=== PATIENT | female | born 1985 | race Caucasian/White ===

== ENCOUNTER 2018-06-23 18:15 | Emergency (ER) | payer OTHER ==
[2018-06-23 18:28] VITALS: BP 116/77
--- NOTE | 2018-06-23 19:15 | XRAY Report ---
Reason: pain, swelling rt hand, footboard fell onto hand Procedure Date: 06/23/2018 Accession Number: [id number] / [id number] Procedure: XR - Hand 3 View RT CPT Code: FULL RESULT: EXAM: RIGHT HAND RADIOGRAPHY EXAM DATE: 06/23/2018 06:34 PM. CLINICAL HISTORY: Pain, swelling rt hand, footboard fell onto hand. COMPARISON: None. TECHNIQUE: 3 views. FINDINGS: Bones: Normal. No fractures or bone lesions. Joints: Normal. No subluxations. Soft Tissues: No focal soft tissue swelling. IMPRESSION: No acute osseus abnormality. RADIA
--- NOTE | 2018-06-23 19:36 | ED Physician Documentation ---
PD HPI UPPER EXT INJURY - Stated complaint Stated Complaint: R HAND INJ - Chief complaint Chief Complaint: Ext Problem - History obtained from History obtained from: Patient - History of Present Illness Location: Right, Hand Type of injury: Crush (footboard while moving a bed today) Where injury occurred: Home Timing - onset: Today Timing - duration: Hours (2) Timing - details: Abrupt onset Pain level max: 9 Pain level now: 9 Improved by: Rest, Ice, Immobilization Worsened by: Moving, Palpating Associated symptoms: No: Weakness, Numbness, Tingling - Additonal information Additional information: pt is right handed Review of Systems Neurologic: denies: Focal weakness, Numbness PD PAST MEDICAL HISTORY - Past Medical History Past Medical History: No Cardiovascular: None Respiratory: None Neuro: None Endocrine/Autoimmune: None GI: None 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 mild swelling. NVI.) - Neuro Neuro: Alert and oriented X 3 - Psych Psych: Normal mood, Normal affect Results - Vitals Vitals: Vital Signs - 24 hr 06/23/18 06/23/18 18:22 19:48 Temperature 36.1 C L Heart Rate 85 Respiratory 16 17 Rate Blood Pressure 116/77 O2 Saturation 100 Oxygen O2 Source Room air - Rads (name of study) R hand xray Radiology: Prelim report reviewed, EMP read contemporaneously, See rad report (no acute bony abnormality.) PD MEDICAL DECISION MAKING - ED course Complexity details: reviewed results, re-evaluated patient, considered differential, d/w patient ED course: Patient is a 33-year-old female Who presents after crush injury to the right hand. No acute findings on x-ray. Placed in a volar splint for comfort. Neurovascularly intact. Patient counseled regarding signs and symptoms for which I believe and urgent re-evaluation would be necessary. Patient with good understanding of and agreement to plan and is comfortable going home at this time This document was made in part using voice recognition software. While efforts are made to proofread this document, sound alike and grammatical errors may occur. Departure - Departure Disposition: 01 Home, Self Care Clinical Impression: Contusion, hand Qualifiers: Encounter type: initial encounter Laterality: right Qualified Code(s): S60.221A - Contusion of right hand, initial encounter Condition: Good Instructions: ED Contusion Hand Follow-Up: BLU ANTONIO MD [Primary Care Provider] - Within 1 week Comments: Your x-rays are normal today. Return if you worsen. Wear the splint as needed for comfort. If you are still having pain in 1 week, you should have your hand re-evaluated by your doctor Discharge Date/Time: 06/23/18 19:59
== END 2018-06-23 19:59 | disposition home or self-care (01) ==
LOC: ED 18:15
DX: S60.221A Contusion of right hand, initial encounter (principal); X58.XXXA Exposure to other specified factors, initial encounter; Y93.89 Activity, other specified; Y92.009 Unspecified place in unspecified non-institutional (private) residence as the place of occurrence of the external cause
CPT/HCPCS: 99283

== ENCOUNTER 2018-08-15 15:37 | Emergency (ER) | payer OTHER ==
--- NOTE | 2018-08-15 17:04 | ED Physician Documentation ---
PD HPI URI - Stated complaint Stated Complaint: VOMITING/FEVER - Chief complaint Chief Complaint: Resp - History obtained from History obtained from: Patient - History of Present Illness Timing - onset: Yesterday Timing duration: Days (2) Timing details: Abrupt onset, Still present Associated symptoms: Fever, Chills, Sore throat, Swollen nodes, Dry cough, NVD. No: Dyspnea, Bilateral edema Contributing factors: Sick contact (coworkers with flu-like symptoms). No: Travel, Immunocompromised Similar symptoms before: Has not had sx before Recently seen: Not recently seen Review of Systems Constitutional: reports: Fever, Chills, Myalgias, Fatigue Nose: reports: Rhinorrhea / runny nose, Congestion Throat: reports: Sore throat Respiratory: reports: Cough GI: reports: Nausea, Vomiting, Diarrhea. denies: Abdominal Pain : denies: Dysuria, Frequency Skin: denies: Rash, Lesions Musculoskeletal: denies: Neck pain, Back pain Neurologic: reports: Generalized weakness, Headache. 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 : None HEENT: None Psych: None Musculoskeletal: None Derm: None - Past Surgical History Past Surgical History: No - Present Medications Home Medications: Ambulatory Orders Medication Instructions Recorded Confirmed Benzonatate [Tessalon Perle] 100 - 200 mg PO TID PRN #30 capsule 08/15/18 Dexamethasone [Decadron] 4 mg PO DAILY #5 tablet 08/15/18 Diphenoxylate/Atropine [Lomotil] 1 each PO QID PRN #12 tablet 08/15/18 Ondansetron Odt [Zofran] 4 mg TL Q6H PRN #10 tablet 08/15/18 - Allergies Allergies/Adverse Reactions: Allergies Allergy/AdvReac Type Severity Reaction Status Date / Time No Known Drug Allergies Allergy Verified 08/15/18 17:48 - Social History Does the pt smoke?: No Smoking Status: Never smoker Does the pt drink ETOH?: Yes Does the pt have substance abuse?: No - Immunizations Immunizations are current?: Yes - POLST Patient has POLST: No PD ED PE NORMAL - Vitals Vital signs reviewed: Yes - General General: Alert and oriented X 3, No acute distress, Well developed/nourished - HEENT HEENT: Ears normal, Moist mucous membranes, Pharynx benign - Neck Neck: Supple, no meningeal sign, Other (mild anterior adenopathy without notable tenderness. ) - Cardiac Cardiac: RRR (mild tachycardia), No murmur - Respiratory Respiratory: Clear bilaterally - Abdomen Abdomen: Soft, Non tender - Back Back: No CVA TTP - Derm Derm: Normal color, Warm and dry - Neuro Neuro: Alert and oriented X 3, No motor deficit, Normal speech Results - Vitals Vitals: Vital Signs - 24 hr 08/15/18 08/15/18 15:41 19:55 Temperature 36.8 C Heart Rate 108 H 105 H Respiratory 18 18 Rate Blood Pressure 123/83 H 133/97 H O2 Saturation 98 98 Oxygen O2 Source Room air - Labs Labs: Laboratory Tests 08/15/18 15:45 Influenza A (Rapid) Negative Influenza B (Rapid) Negative PD MEDICAL DECISION MAKING - ED course Complexity details: considered differential (This sounds flulike with some cough sore throat nausea vomiting some diarrhea and general malaise. Her flu test is negative but is certainly not completely accurate. However it does sound viral and so we will treat symptoms and have her improved and then continue symptom medications over the next 2-3 days.), d/w patient Departure - Departure Disposition: 01 Home, Self Care Clinical Impression: Viral syndrome Condition: Stable Record reviewed to determine appropriate education?: Yes Instructions: ED Viral Syndrome Follow-Up: BLU ANTONIO MD [Primary Care Provider] - Prescriptions: Benzonatate [Tessalon Perle] 100 - 200 mg PO TID PRN #30 capsule PRN Reason: Cough Dexamethasone [Decadron] 4 mg PO DAILY #5 tablet Diphenoxylate/Atropine [Lomotil] 1 each PO QID PRN #12 tablet PRN Reason: Diarrhea Ondansetron Odt [Zofran] 4 mg TL Q6H PRN #10 tablet PRN Reason: Nausea / Vomiting Comments: Drink lots of fluids. Tylenol or ibuprofen if needed for pains and fevers. Ondansetron for nausea. Tessalon if needed for cough. Use antidiarrheal medicine if needed. Decadron steroid for inflammation will help with the cough and a lot of the body aches and those type symptoms. Recheck if not improving over the next 3-5 days. Forms: Activity restrictions Discharge Date/Time: 08/15/18 20:01
[2018-08-15] MEDS ORDERED: ONDANSETRON ODT 4 MG TABLET TL STA (17:26)
[2018-08-15] MEDS ORDERED: BENZONATATE 100 MG CAPSULE PO STA (17:26)
[2018-08-15] MEDS ORDERED: DIPHENOX/ATROPINE 2.5/0.025 MG TABLET PO STA (17:26)
[2018-08-15] MEDS ORDERED: DEXAMETHASONE 10 MG/ML VIAL PO STA (17:26)
[2018-08-15 19:55] VITALS: BP 133/97
== END 2018-08-15 20:01 | disposition home or self-care (01) ==
LOC: ED 15:37
DX: B34.9 Viral infection, unspecified (principal)
CPT/HCPCS: 87275; 87276; 99283; A9270; Q0162

== ENCOUNTER 2019-01-24 19:46 | Emergency (ER) | payer OTHER ==
[2019-01-24 19:50] VITALS: BP 137/80
--- NOTE | 2019-01-24 20:15 | ED Physician Documentation ---
PD HPI FOCAL NEURO - Stated complaint Stated Complaint: L ARM NUMBNESS/ABNORMAL BREATH - Chief complaint Chief Complaint: Neuro - History obtained from History obtained from: Patient - History of Present Illness Timing - onset: Today (She is had odd episodes of shortness of breath followed by cough today, after 1 of these episodes she developed some mild left-sided neck pain and left arm numbness not associated with left facial lower left leg numbness. She is not short of breath except for during these episodes. She denies pedal edema or calf pain. 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 : None HEENT: None Psych: None Musculoskeletal: None Derm: None - Past Surgical History Past Surgical History: No - Present Medications Home Medications: Ambulatory Orders Medication Instructions Recorded Confirmed predniSONE [Deltasone] 20 mg PO [id number] #21 tab 01/24/19 - Allergies Allergies/Adverse Reactions: Allergies Allergy/AdvReac Type Severity Reaction Status Date / Time No Known Drug Allergies Allergy Verified 01/24/19 19:50 - Social History Does the pt smoke?: No Smoking Status: Never smoker Does the pt drink ETOH?: Yes Does the pt have substance abuse?: No - Immunizations Immunizations are current?: Yes - POLST Patient has POLST: No PD ED PE NORMAL - Vitals Vital signs reviewed: Yes - General General: Alert and oriented X 3, No acute distress - HEENT HEENT: PERRL, EOMI - Neck Neck: Supple, no meningeal sign, No bony TTP - Cardiac Cardiac: RRR, No murmur - Respiratory Respiratory: No respiratory distress, Clear bilaterally - Abdomen Abdomen: Normal bowel sounds, Soft, Non tender - Back Back: No CVA TTP, No spinal TTP - Extremities Extremities: No edema, No calf tenderness / cord - Neuro Neuro: Alert and oriented X 3, No motor deficit, Normal speech, Other (Symmetric tongue and groove machine feeder strength, thumb extension, interosseous strength in the upper extremities. Very mildly diminished sensation over the deltoid and forearm that spares the hand on the left. There is no asymmetric sensation in the face or legs.) Eye Opening: Spontaneous Motor: Obeys Commands Verbal: Oriented GCS Score: 15 NIHSS - Time Time: 20:10 - Level of Consciousness Level of consciousness: (0) Alert, Keenly responsive LOC Questions: (0) Answers both Q's correct LOC Commands: (0) Performs both correctly - Gaze Best Gaze: (0) Normal - Visual Visual: (0) No loss - Facial Palsy Facial Palsy: (0) Normal, symmetrical movement - Motor Arms (both separate) Motor Arm (right): (0) No drift Motor Arm (left): (0) No drift - Motor Legs (both separate) Motor Leg (right): (0) No drift Motor Leg (left): (0) No drift - Limb Ataxia Limb Ataxia: (0) Absent - Sensory Sensory: (1) Hbdt-hq-mlffxkwb loss - Best Language Best Language: (0) No aphasia - Dysarthria Dysarthria: (0) Normal - Extinction and Inattention (formally neg Extinction and inattention: (0) No abnormality - Total Score/Results Total Score/Result: 1 Results - Vitals Vitals: Vital Signs - 24 hr 01/24/19 19:48 Temperature 36.7 C Heart Rate 111 H Respiratory 18 Rate Blood Pressure 137/80 H O2 Saturation 99 Oxygen O2 Source Room air - Labs Labs: Laboratory Tests 01/24/19 01/24/19 01/24/19 20:23 20:23 20:23 WBC 10.2 RBC 5.11 Hgb 13.9 Hct 42.4 MCV 82.9 MCH 27.3 MCHC 32.9 RDW 13.4 Plt Count 379 MPV 7.3 L Neut # (Auto) 5.8 Lymph # (Auto) 3.3 [place] # (Auto) 0.8 Eos # (Auto) 0.2 Baso # (Auto) 0.2 H Absolute Nucleated RBC 0.01 Nucleated RBC % 0.1 D-Dimer 231.4 Sodium 137 Potassium 3.6 Chloride 103 Carbon Dioxide 23 Anion Gap 11.0 BUN 17 Creatinine 0.8 Estimated GFR (MDRD) 88 L Glucose 136 H Calcium 9.4 Total Bilirubin 0.7 AST 24 ALT 28 Alkaline Phosphatase 79 Total Protein 8.0 Albumin 4.3 Globulin 3.7 Albumin/Globulin Ratio 1.2 Lipase 25 PD MEDICAL DECISION MAKING - ED course ED course: 23-year-old woman with left arm numbness that started after coughing. There is no weakness or involvement of the face or leg. This is most likely consistent with a cervical radiculopathy. She was short of breath with it. The remainder of her diagnostic testing was negative. Departure - Departure Disposition: Home, Self Care Clinical Impression: Left upper extremity numbness, Cervical radiculopathy Condition: Good Record reviewed to determine appropriate education?: Yes Instructions: ED Cervical Radiculopathy Prescriptions: predniSONE [Deltasone] 20 mg PO [id number] #21 tab Comments: Call your doctor to arrange a follow-up appointment, make the next available appointment. In the interim, return anytime if worse or if new symptoms develop.
[2019-01-24 20:31] LABS: BASOPHILS # (AUTO) 0.2 10^3/uL (0.0-0.1); BASOPHILS % (AUTO) 1.8 %; EOSINOPHILS # (AUTO) 0.2 10^3/uL (0.0-0.7); EOSINOPHILS % (AUTO) 1.8 %; HGB - HEMOGLOBIN 13.9 g/dL (12.0-16.0); LYMPHOCYTES # (AUTO) 3.3 10^3/uL (1.5-3.5); LYMPHOCYTES % (AUTO) 31.8 %; MEAN CORPUSCULAR HEMOGLOBIN 27.3 pg (27.0-31.0); MEAN CORPUSCULAR HGB CONC 32.9 g/dL (32.0-36.0); MEAN CORPUSCULAR VOLUME 82.9 fL (81.0-99.0); MEAN PLATELET VOLUME 7.3 fL (7.9-10.8); MONOCYTES # (AUTO) 0.8 10^3/uL (0.0-1.0); MONOCYTES % (AUTO) 7.9 %; NEUTROPHILS # (AUTO) 5.8 10^3/uL (1.5-6.6); NEUTROPHILS % (AUTO) 56.7 %; PLT - PLATELET COUNT 379 10^3/uL (130-450); RED BLOOD COUNT 5.11 10^6/uL (4.20-5.40); RED CELL DISTRIBUTION WIDTH 13.4 % (12.0-15.0); WHITE BLOOD COUNT 10.2 x10^3/uL (4.8-10.8)
[2019-01-24 20:44] LABS: ALBUMIN 4.3 g/dL (3.2-5.5); ALBUMIN/GLOBULIN RATIO 1.2 (1.0-2.2); BILIRUBIN,TOTAL 0.7 mg/dL (0.2-1.0); CALCIUM 9.4 mg/dL (8.5-10.3); CREATININE 0.8 mg/dL (0.4-1.0)
--- NOTE | 2019-01-24 21:04 | CT Report ---
Reason: L arm numb, neck pain Procedure Date: 01/24/2019 Accession Number: [id number] / [id number] Procedure: CT - HEAD WO CPT Code: FULL RESULT: EXAM: CT HEAD EXAM DATE: 01/24/2019 08:39 PM. CLINICAL HISTORY: L arm numb, neck pain. COMPARISON: None. TECHNIQUE: Multiaxial CT images were obtained from the foramen magnum to the vertex. Reformats: Sagittal and coronal. IV contrast: None. In accordance with CT protocol optimization, one or more of the following dose reduction techniques were utilized for this exam: automated exposure control, adjustment of mA and/or KV based on patient size, or use of iterative reconstructive technique. FINDINGS: Parenchyma: No intraparenchymal hemorrhage. No evidence of mass, midline shift, or CT findings of infarction. Ott-white differentiation is distinct. Extraaxial Spaces: Normal for age. No subdural or epidural collections. Ventricles: Normal in size and position. Sinuses and Orbits: Marked mucosal thickening in maxillary sinuses with small air-fluid levels in maxillary and sphenoid sinuses. Otherwise unremarkable. Bones: Unremarkable. Other: None. IMPRESSION: 1. Prominent maxillary and sphenoid sinusitis with air-fluid levels. 2. Otherwise negative head CT. RADIA
--- NOTE | 2019-01-24 21:08 | CT Report ---
Reason: L arm numb, neck pain Procedure Date: 01/24/2019 Accession Number: [id number] / [id number] Procedure: CT - CERVICAL SPINE WO CPT Code: FULL RESULT: EXAM: CT CERVICAL SPINE WITHOUT CONTRAST DATE: 01/24/2019 08:39 PM. HISTORY: L arm numb, neck pain. COMPARISONS: None. TECHNIQUE: Thin-section axial images were acquired of the cervical spine without contrast. Post-processing: Coronal and sagittal reformats. Other: None. In accordance with CT protocol optimization, one or more of the following dose reduction techniques were utilized for this exam: automated exposure control, adjustment of mA and/or KV based on patient size, or use of iterative reconstructive technique. FINDINGS: Alignment: Slight reversal of lordotic curve at C3-C4. No listhesis. No scoliosis. Bones: No fracture or bone lesion. Interspace Levels/Facets: Disk spaces appear well preserved. No degenerative changes. Musculature: Unremarkable. Other: The paravertebral and prevertebral soft tissues are unremarkable. The lung apices are clear. IMPRESSION: Essentially negative study. RADIA
[2019-01-24] MEDS ORDERED: predniSONE 20 MG TABLET PO STA (21:14)
== END 2019-01-24 21:27 | disposition home or self-care (01) ==
LOC: ED 19:46
DX: M54.12 Radiculopathy, cervical region (principal); R20.0 Anesthesia of skin; R06.02 Shortness of breath
CPT/HCPCS: 36415; 70450; 72125; 80053; 83690; 85025; 85379; 99283; J7512

== ENCOUNTER 2019-02-10 06:30 | Emergency (ER) | payer OTHER ==
[2019-02-10 06:52] LABS: BASOPHILS # (AUTO) 0.1 10^3/uL (0.0-0.1); BASOPHILS % (AUTO) 0.9 %; EOSINOPHILS # (AUTO) 0.2 10^3/uL (0.0-0.7); EOSINOPHILS % (AUTO) 2.5 %; HGB - HEMOGLOBIN 14.5 g/dL (12.0-16.0); LYMPHOCYTES # (AUTO) 3.3 10^3/uL (1.5-3.5); LYMPHOCYTES % (AUTO) 43.9 %; MEAN PLATELET VOLUME 7.2 fL (7.9-10.8); MONOCYTES # (AUTO) 0.6 10^3/uL (0.0-1.0); MONOCYTES % (AUTO) 8.1 %; NEUTROPHILS # (AUTO) 3.4 10^3/uL (1.5-6.6); NEUTROPHILS % (AUTO) 44.6 %; PLT - PLATELET COUNT 343 10^3/uL (130-450); RED BLOOD COUNT 4.99 10^6/uL (4.20-5.40); RED CELL DISTRIBUTION WIDTH 13.7 % (12.0-15.0); WHITE BLOOD COUNT 7.5 x10^3/uL (4.8-10.8)
[2019-02-10 07:09] LABS: ALBUMIN 4.4 g/dL (3.2-5.5); ALBUMIN/GLOBULIN RATIO 1.2 (1.0-2.2); BILIRUBIN,TOTAL 0.7 mg/dL (0.2-1.0); CREATININE 0.7 mg/dL (0.4-1.0); TOTAL PROTEIN 8.2 g/dL (6.7-8.2)
[2019-02-10 07:11] LABS: BILIRUBIN,URINE NEGATIVE (NEGATIVE); GLUCOSE, URINE (UA) NEGATIVE (NEGATIVE); KETONES,URINE (UA) NEGATIVE (NEGATIVE); LEUKOCYTE ESTERASE, URINE NEGATIVE (NEGATIVE); NITRITE,URINE NEGATIVE (NEGATIVE); OCCULT BLOOD,URINE NEGATIVE (NEGATIVE); PROTEIN,URINE NEGATIVE (NEGATIVE); UROBILINOGEN,URINE 0.2 (NORMAL) E.U./dL (NORMAL)
[2019-02-10 07:14] LABS: CLARITY,URINE HAZY (CLEAR); HCG UR QUAL NEGATIVE
[2019-02-10 07:21] LABS: BACTERIA,URINE Few /HPF (None Seen); CRYSTALS,URINE 26-50 Ca Oxalate /LPF; RBC,URINE 0-5 /HPF (0-5); SQUAMOUS EPITHELIAL CELL,UR MANY Squamous (<= Few)
--- NOTE | 2019-02-10 07:44 | ED Physician Documentation ---
PD HPI ABD PAIN - Stated complaint Stated Complaint: ABD PAIN - Chief complaint Chief Complaint: Abd Pain - History obtained from History obtained from: Patient, Family - History of Present Illness Timing - onset: Enter time (529), Today Timing - duration: Hours Timing - details: Abrupt onset, Still present Pain level max: 9 Pain level now: 9 Quality: Cramping, Sharp, Pain Location: Periumbilical Radiation: Left flank, Right flank Improved by: Laying still Worsened by: Moving, Position, Palpation Associated symptoms: Nausea, Vomiting Similar symptoms before: Has not had sx before Recently seen: Emergency Dept - Additional information Additional information: Previously well 23-year-old female was awakened at 530 this morning with abdominal pain in the suprapubic and periumbilical area that radiated to both flanks. She has had severe pain and has had one episode of vomiting. She has not had this pain previously and she has noted that when she is up moving around the pain is worse. She was not able to localize to one side or the other. Review of Systems Constitutional: denies: Fever Eyes: denies: Decreased vision Ears: denies: Ear pain Nose: denies: Rhinorrhea / runny nose, Congestion Throat: denies: Sore throat Cardiac: denies: Chest pain / pressure, Palpitations Respiratory: reports: Cough. denies: Dyspnea GI: reports: Abdominal Pain, Nausea, Vomiting : denies: Dysuria, Frequency Skin: denies: Rash Musculoskeletal: reports: Back pain. 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 : None HEENT: None Psych: None Musculoskeletal: None Derm: None - Past Surgical History Past Surgical History: No - Present Medications Home Medications: Ambulatory Orders Medication Instructions Recorded Confirmed No Known Home Medications 02/10/19 02/10/19 - Allergies Allergies/Adverse Reactions: Allergies Allergy/AdvReac Type Severity Reaction Status Date / Time No Known Drug Allergies Allergy Verified 02/10/19 06:37 - Social History Does the pt smoke?: No Smoking Status: Never smoker Does the pt drink ETOH?: Yes Does the pt have substance abuse?: No - Immunizations Immunizations are current?: Yes - POLST Patient has POLST: No PD ED PE NORMAL - Vitals Vital signs reviewed: Yes (hypertensive mild ) - General General: Alert and oriented X 3, No acute distress, Well developed/nourished - HEENT HEENT: Atraumatic, PERRL, EOMI - Neck Neck: Supple, no meningeal sign, No bony TTP - Cardiac Cardiac: RRR, No murmur - Respiratory Respiratory: No respiratory distress, Clear bilaterally - Abdomen Abdomen: Soft, Non distended, No organomegaly, Other (There is specific right lower quadrant tenderness that is reproducible and there is referred pain to the RLQ There is no RUQ tenderness and there is mild bilateral flank tenderness. ) - Back Back: No spinal TTP, Other (mild bilateral flank tenderness not reproducible ) - Derm Derm: Normal color, Warm and dry, No rash - Extremities Extremities: No deformity, Normal ROM s pain, No edema, No calf tenderness / cord - Neuro Neuro: Alert and oriented X 3, risk prevention engineer 2-12 intact, No motor deficit, No sensory deficit, Normal speech Eye Opening: Spontaneous Motor: Obeys Commands Verbal: Oriented GCS Score: 15 - Psych Psych: Normal mood, Normal affect Results - Vitals Vitals: Vital Signs - 24 hr 02/10/19 02/10/19 06:34 11:12 Temperature 37 C 36.8 C Heart Rate 100 66 Respiratory 16 20 Rate Blood Pressure 124/83 H 106/75 O2 Saturation 99 100 Oxygen O2 Source Room air - Labs Labs: Laboratory Tests 02/10/19 02/10/19 02/10/19 06:46 06:46 07:00 WBC 7.5 RBC 4.99 Hgb 14.5 Hct 41.4 MCV 83.0 MCH 29.0 MCHC 35.0 RDW 13.7 Plt Count 343 MPV 7.2 L Neut # (Auto) 3.4 Lymph # (Auto) 3.3 [place] # (Auto) 0.6 Eos # (Auto) 0.2 Baso # (Auto) 0.1 Absolute Nucleated RBC 0.01 Nucleated RBC % 0.1 Sodium 138 Potassium 3.8 Chloride 106 Carbon Dioxide 20 L Anion Gap 12.0 BUN 15 Creatinine 0.7 Estimated GFR (MDRD) 103 Glucose 127 H Calcium 9.0 Total Bilirubin 0.7 AST 22 ALT 25 Alkaline Phosphatase 79 Total Protein 8.2 Albumin 4.4 Globulin 3.7 Albumin/Globulin Ratio 1.2 Lipase 28 Urine Color YELLOW Urine Clarity HAZY Urine pH 5.0 Ur Specific [place] >=1.030 H Urine Protein NEGATIVE Urine Glucose (UA) NEGATIVE Urine Ketones NEGATIVE Urine Occult Blood NEGATIVE Urine Nitrite NEGATIVE Urine Bilirubin NEGATIVE Urine Urobilinogen 0.2 (NORMAL) Ur Leukocyte Esterase NEGATIVE Urine RBC 0-5 Urine WBC 0-3 Ur Squamous Epith Cells MANY Squamous H Urine Crystals 26-50 Ca Oxalate Urine Bacteria Few Ur Microscopic Review INDICATED Urine Culture Comments NOT INDICATED Urine HCG, Qual NEGATIVE - Rads (name of study) CT abd/pel without Radiology: Prelim report reviewed (Impression: 1. The appendix images normally. 2 No bowel obstruction or inflammatory process associated with the bowel. 3 There is a paucity of bowel gas in the small bowel), EMP read indepedently, See rad report pelvic ultrasound Radiology: Prelim report reviewed (Impression: Normal pelvic ultrasound.), EMP read indepedently, See rad report Procedures - Bedside sono Bedside sono by EMP: With use of bedside ultrasound both kidneys are imaged and there is not evidence of hydronephrosis and the kidneys are sonographically nontender. PD MEDICAL DECISION MAKING - ED course Complexity details: reviewed old records, reviewed results, re-evaluated patient, considered differential, d/w patient, d/w family ED course: 23-year-old female with right lower quadrant abdominal pain on examination has improvement from a 9 to a 6 on her pain scale with use of intravenous Toradol. Her CT scan is negative for evidence of appendicitis or inflammation. She has had prior issues with ovarian cyst and an ultrasound is ordered. This test is unremarkable as well. The patient has had further improvement in her pain. We did not find evidence of an acute disease process on evaluation today. Departure - Departure Disposition: 01 Home, Self Care Clinical Impression: Abdominal pain of unknown etiology Condition: Stable Instructions: ED Abdominal Pain Unkn Cause Follow-Up: BLU ANTONIO MD [Primary Care Provider] - Forms: Activity restrictions
[2019-02-10] MEDS ORDERED: SODIUM CHLORIDE 0.9% 1,000 ML IV ONE (07:47)
[2019-02-10] MEDS ORDERED: KETOROLAC 30 MG/ML VIAL IVP STA (07:47)
[2019-02-10] MEDS ORDERED: ONDANSETRON 4 MG/2 ML VIAL IVP STA (07:47)
--- NOTE | 2019-02-10 08:33 | CT Report ---
Reason: RLQ tenderness Procedure Date: 02/10/2019 Accession Number: [id number] / [id number] Procedure: CT - Abdomen/Pelvis WO CPT Code: FULL RESULT: EXAM: CT ABDOMEN AND PELVIS EXAM DATE: 02/10/2019 08:21 AM. CLINICAL HISTORY: RLQ tenderness. COMPARISONS: None. TECHNIQUE: Routine helical CT imaging was performed through the abdomen and pelvis. IV contrast: None. Enteric contrast: No. Reconstructions: Coronal and sagittal. In accordance with CT protocol optimization, one or more of the following dose reduction techniques were utilized for this exam: automated exposure control, adjustment of mA and/or KV based on patient size, or use of iterative reconstructive technique. FINDINGS: Lung Bases: Unremarkable. Liver: Normal. No masses. Gallbladder/Bile Ducts: Unremarkable. Spleen: Normal. Pancreas: Normal. Adrenal Glands: Normal. Kidneys: Normal. No masses or hydronephrosis. Peritoneal Cavity/Bowel: The cecum and appendix are located in the right upper quadrant. No bowel obstruction or inflammatory process associated with the bowel. No free air or fluid in the abdomen or pelvis. There is a paucity of bowel gas in small bowel. The appendix is well visualized and normal. Pelvic Organs: Normal. The bladder and visualized pelvic organs are within normal limits. Vasculature: No aneurysms or other significant abnormality. Bones: No significant abnormality. Other: None. IMPRESSION: 1. The appendix images normally. 2. No bowel obstruction or inflammatory process associated with the bowel. 3. There is a paucity of bowel gas in the small bowel. RADIA
--- NOTE | 2019-02-10 11:01 | Ultrasound Report ---
Reason: RLQ pain Procedure Date: 02/10/2019 Accession Number: [id number] / [id number] Procedure: US - Pelvic w/Doppler Limited CPT Code: FULL RESULT: EXAM: PELVIC ULTRASOUND EXAM DATE: 02/10/2019 09:21 AM. CLINICAL HISTORY: RLQ pain. COMPARISON: CT ABDOMEN/PELVIS W/O 02/10/2019 8:11 AM. TECHNIQUE: Realtime transabdominal pelvic scan performed with static image documentation. FINDINGS: Uterus: 6.9 x 2.7 x 3.8 cm, volume 37 cc. Anteverted position. Normal overall size and echotexture. Masses: None. Endometrium: 2.4 mm. Normal. Cervix: Unremarkable. Right Ovary: 3.6 x 2.3 x 3.2 cm, volume 13.8 cc. Normal echotexture and blood flow. Left Ovary: 3.6 x 1.9 x 3.3 cm, volume 11.8 cc. Normal echotexture and blood flow. Free Fluid: None. Other: None. IMPRESSION: Normal pelvic ultrasound. [facility]
[2019-02-10 11:13] VITALS: BP 106/75
== END 2019-02-10 12:02 | disposition home or self-care (01) ==
LOC: ED 06:30
DX: R10.31 Right lower quadrant pain (principal); R11.2 Nausea with vomiting, unspecified
CPT/HCPCS: 36415; 74176; 76856; 80053; 81001; 81003; 81025; 83690; 85025; 87086; 93976; 96361; 96374; 99283

== ENCOUNTER 2019-09-27 19:47 | Emergency (ER) | payer OTHER ==
[2019-09-27 20:37] LABS: BASOPHILS # (AUTO) 0.1 10^3/uL (0.0-0.1); BASOPHILS % (AUTO) 0.7 %; EOSINOPHILS # (AUTO) 0.2 10^3/uL (0.0-0.7); EOSINOPHILS % (AUTO) 1.5 %; HGB - HEMOGLOBIN 13.6 g/dL (12.0-16.0); LYMPHOCYTES % (AUTO) 28.9 %; MEAN CORPUSCULAR HEMOGLOBIN 27.9 pg (27.0-31.0); MEAN CORPUSCULAR HGB CONC 33.1 g/dL (32.0-36.0); MEAN CORPUSCULAR VOLUME 84.4 fL (81.0-99.0); MEAN PLATELET VOLUME 8.8 fL (7.9-10.8); MONOCYTES # (AUTO) 0.5 10^3/uL (0.0-1.0); MONOCYTES % (AUTO) 5.1 %; NEUTROPHILS # (AUTO) 6.6 10^3/uL (1.5-6.6); NEUTROPHILS % (AUTO) 63.5 %; PLT - PLATELET COUNT 358 10^3/uL (130-450); RED BLOOD COUNT 4.87 10^6/uL (4.20-5.40); RED CELL DISTRIBUTION WIDTH 13.2 % (12.0-15.0); WHITE BLOOD COUNT 10.3 x10^3/uL (4.8-10.8)
[2019-09-27 20:51] LABS: ALBUMIN 4.2 g/dL (3.2-5.5); ALBUMIN/GLOBULIN RATIO 1.2 (1.0-2.2); BILIRUBIN,TOTAL 0.4 mg/dL (0.2-1.0); CALCIUM 8.8 mg/dL (8.5-10.3); CREATININE 0.7 mg/dL (0.4-1.0); TOTAL PROTEIN 7.6 g/dL (6.7-8.2)
--- NOTE | 2019-09-27 20:59 | ED Physician Documentation ---
History of Present Illness - Stated complaint Stated Complaint: CRAMPING,VAGINAL BLEEDING - Chief complaint Chief Complaint: Abd Pain - History obtained from History obtained from: Patient (The patient is a very pleasant 24-year-old female who is a G1, P0 at 9 weeks by LMP presents with vaginal spotting and cramping today. She denies any other complaints she denies dysuria hematuria fevers or abdominal pain.) Review of Systems Constitutional: reports: Reviewed and negative Eyes: reports: Reviewed and negative Ears: reports: Reviewed and negative Nose: reports: Reviewed and negative Throat: reports: Reviewed and negative Cardiac: reports: Reviewed and negative Respiratory: reports: Reviewed and negative GI: reports: Reviewed and negative : reports: Vaginal bleeding Skin: reports: Reviewed and negative Musculoskeletal: reports: Reviewed and negative Neurologic: reports: Reviewed and negative Psychiatric: reports: Reviewed and negative Endocrine: reports: Reviewed and negative Immunocompromised: reports: Reviewed and negative PD PAST MEDICAL HISTORY - Past Medical History Cardiovascular: None Respiratory: None Neuro: None Endocrine/Autoimmune: None GI: None MOVEMAN: None : None HEENT: None Psych: None Musculoskeletal: None Derm: None - Past Surgical History Past Surgical History: No - Present Medications Home Medications: Ambulatory Orders Medication Instructions Recorded Confirmed No Known Home Medications 02/10/19 02/10/19 - Allergies Allergies/Adverse Reactions: Allergies Allergy/AdvReac Type Severity Reaction Status Date / Time No Known Drug Allergies Allergy Verified 02/10/19 06:37 - Social History Does the pt smoke?: No Smoking Status: Never smoker Does the pt drink ETOH?: Yes Does the pt have substance abuse?: No - Immunizations Immunizations are current?: Yes - POLST Patient has POLST: No PD ED PE NORMAL - Vitals Vital signs reviewed: Yes - General General: Alert and oriented X 3, No acute distress - HEENT HEENT: PERRL - Neck Neck: Supple, no meningeal sign - Cardiac Cardiac: RRR, No murmur - Respiratory Respiratory: Clear bilaterally - Abdomen Abdomen: Normal bowel sounds, Soft, Non tender, Non distended - Female Female : Deferred - Derm Derm: Warm and dry - Extremities Extremities: No deformity - Neuro Neuro: Alert and oriented X 3 - Psych Psych: Normal mood, Normal affect Results - Vitals Vitals: Vital Signs - 24 hr 09/27/19 09/27/19 19:50 21:21 Temperature 37 C 37.1 C Heart Rate 88 86 Respiratory 16 20 Rate Blood Pressure 146/94 H 120/73 O2 Saturation 100 100 Oxygen O2 Source Room air - Labs Labs: Laboratory Tests 09/27/19 09/27/19 09/27/19 20:35 20:35 20:35 WBC 10.3 RBC 4.87 Hgb 13.6 Hct 41.1 MCV 84.4 MCH 27.9 MCHC 33.1 RDW 13.2 Plt Count 358 MPV 8.8 Neut # (Auto) 6.6 Lymph # (Auto) 3.0 [place] # (Auto) 0.5 Eos # (Auto) 0.2 Baso # (Auto) 0.1 Absolute Nucleated RBC 0.00 Nucleated RBC % 0.0 Sodium 135 Potassium 3.2 L Chloride 101 Carbon Dioxide 22 Anion Gap 12.0 BUN 9 Creatinine 0.7 Estimated GFR (MDRD) 102 Glucose 131 H Calcium 8.8 Total Bilirubin 0.4 AST 20 ALT 24 Alkaline Phosphatase 60 Total Protein 7.6 Albumin 4.2 Globulin 3.4 Albumin/Globulin Ratio 1.2 Lipase 25 HCG, Quant 140771.00 Blood Type 09/27/19 20:35 WBC RBC Hgb Hct MCV MCH MCHC RDW Plt Count MPV Neut # (Auto) Lymph # (Auto) [place] # (Auto) Eos # (Auto) Baso # (Auto) Absolute Nucleated RBC Nucleated RBC % Sodium Potassium Chloride Carbon Dioxide Anion Gap BUN Creatinine Estimated GFR (MDRD) Glucose Calcium Total Bilirubin AST ALT Alkaline Phosphatase Total Protein Albumin Globulin Albumin/Globulin Ratio Lipase HCG, Quant Blood Type A POSITIVE PD MEDICAL DECISION MAKING - ED course Complexity details: other (Patient was updated on the results of the ultrasound I recommended that she allow us to draw blood as well as obtain urine however the patient reports that she like to be discharged home she has close follow-up today with her OB provider as well as her primary care provider today the patient does have medical decision-making capability and capacity accepts all and any possible adverse outcome such as demise.) Departure - Departure Disposition: Home, Self Care Clinical Impression: Qualifiers: Weeks of gestation: 8 weeks Qualified Code(s): Z3A.08 - 8 weeks gestation of Condition: Good Instructions: ED Care, ED Preg Established Normal Sxs Follow-Up: BLU ANTONIO MD [Primary Care Provider] - Discharge Date/Time: 09/27/19 23:59
[2019-09-27 21:22] VITALS: BP 120/73
--- NOTE | 2019-09-27 22:19 | Ultrasound Report ---
Reason: 9 week preg, vb Procedure Date: 09/27/2019 Accession Number: [id number] / [id number] Procedure: US - OB First Trimester CPT Code: Final Report FULL RESULT: EXAM: FIRST TRIMESTER OBSTETRIC ULTRASOUND (Less than 11 weeks) EXAM DATE: 09/27/2019 09:24 PM. CLINICAL HISTORY: 9 week . Vaginal bleeding. LMP: 07/19/2019. COMPARISONS: None. TECHNIQUE: Transabdominal and transvaginal ultrasound examination with static image documentation. CLINICAL DATES: EGA 10 weeks 0 days with ALEX 04/24/2020 based on LMP. ASSESSMENT: Gestational Sac: Single intrauterine. Mean gestational sac diameter: 28 mm = 7 weeks 6 days. Embryo: CRL (crown-rump length) 19 mm = 8 weeks 3 days. Cardiac activity: 174 beats per minute. Yolk sac: 5 mm. Amniotic fluid: Not accurately assessed at this gestational age. Early placenta: Not visible at this gestational age. Other: Small perigestational fluid collection demonstrated 1.7 x 0.8 cm. MATERNAL STRUCTURES: Uterus: Anteverted. Unremarkable. Cervix: Closed. Right Ovary/Adnexa: The ovary measures 2.9 x 1.9 x 4.2 cm, volume 12.3 cc. Unremarkable. Left Ovary/Adnexa: The ovary measures 2.4 x 2.7 x 4.0 cm, volume 13.7 cc. Unremarkable. Free Fluid: None. Other: None. IMPRESSION: 1. Single viable intrauterine at EGA 8 weeks 3 days with ALEX 05/05/2020 based on crown-rump length, which is discordant with clinical dates. 2. Assigned dating is ALEX 05/05/2020 based on crown-rump length. 3. Small perigestational hemorrhage noted 1.7 x 0.8 cm. RAD[facility]
== END 2019-09-27 23:59 | disposition home or self-care (01) ==
LOC: ED 19:47
DX: O20.9 Hemorrhage in early pregnancy, unspecified (principal); Z3A.08 8 weeks gestation of pregnancy
CPT/HCPCS: 36415; 76801; 76817; 80053; 83690; 84702; 85025; 86900; 86901; 99282; 99284

== ENCOUNTER 2019-11-09 13:29 | Emergency (ER) | payer OTHER ==
[2019-11-09 13:34] VITALS: BP 136/81
--- NOTE | 2019-11-09 14:01 | ED Physician Documentation ---
PD HPI LOWER EXT INJURY - Stated complaint Stated Complaint: HURT LEFT ANKLE - Chief complaint Chief Complaint: Ext Problem - History obtained from History obtained from: Patient (She is 14 weeks . She was getting in her car today and the door slammed on her left foot and she has moderate pain thereafter feeling a crack on the lateral side of the foot. No other injuries.) Review of Systems Constitutional: reports: Reviewed and negative Cardiac: reports: Reviewed and negative Respiratory: reports: Reviewed and negative PD PAST MEDICAL HISTORY - Past Medical History Cardiovascular: None Respiratory: None Neuro: None Endocrine/Autoimmune: None GI: None SPOOL SALVAGER: None : None HEENT: None Psych: None Musculoskeletal: None Derm: None - Past Surgical History Past Surgical History: No - Present Medications Home Medications: Ambulatory Orders Medication Instructions Recorded Confirmed No Known Home Medications 02/10/19 02/10/19 - Allergies Allergies/Adverse Reactions: Allergies Allergy/AdvReac Type Severity Reaction Status Date / Time No Known Drug Allergies Allergy Verified 11/09/19 13:34 - Social History Does the pt smoke?: No Smoking Status: Never smoker Does the pt drink ETOH?: Yes Does the pt have substance abuse?: No - Immunizations Immunizations are current?: Yes - POLST Patient has POLST: No PD ED PE NORMAL - Vitals Vital signs reviewed: Yes - General General: Alert and oriented X 3, No acute distress - Extremities Extremities: Other (Tender over the fifth metatarsal on the left without deformity. No distal neurovascular compromise. The left ankle is not tender.) - Neuro Neuro: Alert and oriented X 3, Normal speech Results - Vitals Vitals: Vital Signs - 24 hr 11/09/19 13:32 Temperature 37 C Heart Rate 98 Respiratory 17 Rate Blood Pressure 136/81 H O2 Saturation 100 Oxygen O2 Source Room air - Rads (name of study) 3v L foot Radiology: EMP read contemporaneously (normal) PD MEDICAL DECISION MAKING - ED course ED course: 24-year-old woman with left foot injury, we discussed x-rays and she did want a go ahead with it noting that she is 14 weeks . The x-ray was negative and she is placed in a boot for comfort. She is able to walk and bear weight. Departure - Departure Disposition: 01 Home, Self Care Clinical Impression: Contusion of left foot Qualifiers: Encounter type: initial encounter Qualified Code(s): S90.32XA - Contusion of left foot, initial encounter Qualifiers: Weeks of gestation: 14 weeks Qualified Code(s): Z3A.14 - 14 weeks gestation of Condition: Good Record reviewed to determine appropriate education?: Yes Instructions: ED Contusion Foot Comments: Tylenol as needed for pain, return for new or worsening symptoms. Keep it elevated. Follow-up with your doctor in a week if not better. Discharge Date/Time: 11/09/19 15:34
--- NOTE | 2019-11-09 15:27 | XRAY Report ---
Reason: injury Procedure Date: 11/09/2019 Accession Number: [id number] / [id number] Procedure: XR - Foot 3 View LT CPT Code: Final Report FULL RESULT: EXAM: LEFT FOOT RADIOGRAPHY EXAM DATE: 11/09/2019 03:19 PM. CLINICAL HISTORY: Rolled ankle yesterday. Injury. Pain. COMPARISON: None. TECHNIQUE: 3 views. FINDINGS: Bones: Normal. No fractures or bone lesions. Joints: Normal. No subluxations. Soft Tissues: Unremarkable. IMPRESSION: Normal foot radiography. [facility]
== END 2019-11-09 15:34 | disposition home or self-care (01) ==
LOC: ED 13:29
DX: O99.89 Other specified diseases and conditions complicating pregnancy, childbirth and the puerperium (principal); S90.32XA Contusion of left foot, initial encounter; V48.4XXA Person boarding or alighting a car injured in noncollision transport accident, initial encounter; Z3A.14 14 weeks gestation of pregnancy
CPT/HCPCS: 99283

== ENCOUNTER 2019-11-16 13:33 | Emergency (ER) | payer OTHER ==
[2019-11-16 14:53] LABS: BILIRUBIN,URINE NEGATIVE (NEGATIVE); GLUCOSE, URINE (UA) NEGATIVE (NEGATIVE); KETONES,URINE (UA) NEGATIVE (NEGATIVE); LEUKOCYTE ESTERASE, URINE TRACE (NEGATIVE); NITRITE,URINE NEGATIVE (NEGATIVE); OCCULT BLOOD,URINE NEGATIVE (NEGATIVE); PH,URINE 5.5 PH (5.0-7.5); PROTEIN,URINE NEGATIVE (NEGATIVE); UROBILINOGEN,URINE 0.2 (NORMAL) E.U./dL (NORMAL)
[2019-11-16 14:54] LABS: CLARITY,URINE HAZY (CLEAR)
[2019-11-16 15:12] LABS: BACTERIA,URINE None Seen /HPF (None Seen); RBC,URINE 0-5 /HPF (0-5); SQUAMOUS EPITHELIAL CELL,UR MOD Squamous (<= Few)
[2019-11-16] MEDS ORDERED: oxyCODONE 5 MG TABLET PO STA (15:29)
--- NOTE | 2019-11-16 15:32 | ED Physician Documentation ---
History of Present Illness - Stated complaint Stated Complaint: CRAMPING, BACK PAIN - Chief complaint Chief Complaint: General - History obtained from History obtained from: Patient - History of Present Illness Timing: Today Pain level max: 8 Pain level now: 8 - Additonal information Additional information: 24-year-old female presents to the emergency department with left flank pain today. She is 1 para 0, approximately 15 weeks . Worse with movement and better with rest. Denies any trauma. No vaginal bleeding or fluid leakage. No issues with this so far. Took Tylenol without relief. No fevers. No recent illnesses. 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: None : None HEENT: None Psych: None Musculoskeletal: None Derm: None - Past Surgical History Past Surgical History: No - Present Medications Home Medications: Ambulatory Orders Medication Instructions Recorded Confirmed Oxycodone HCl 5 mg PO Q6H PRN #7 tablet 11/16/19 - Allergies Allergies/Adverse Reactions: Allergies Allergy/AdvReac Type Severity Reaction Status Date / Time No Known Drug Allergies Allergy Verified 11/16/19 13:43 - Social History Does the pt smoke?: No Smoking Status: Never smoker Does the pt drink ETOH?: Yes Does the pt have substance abuse?: No - Immunizations Immunizations are current?: Yes - POLST Patient has POLST: No PD ED PE NORMAL - Vitals Vital signs reviewed: Yes - General General: Alert and oriented X 3 - HEENT HEENT: Moist mucous membranes - Neck Neck: Supple, no meningeal sign - Cardiac Cardiac: RRR - Respiratory Respiratory: No respiratory distress, Clear bilaterally - Abdomen Abdomen: Soft, Non tender, Non distended - Back Back: No CVA TTP, No spinal TTP, Other (paraspinal spasm L > R. ) - Derm Derm: Warm and dry - Extremities Extremities: No edema - Neuro Neuro: Alert and oriented X 3 Results - Vitals Vitals: Vital Signs - 24 hr 11/16/19 13:41 Temperature 36.4 C L Heart Rate 97 Respiratory 18 Rate Blood Pressure 142/73 H O2 Saturation 99 Oxygen O2 Source Room air - Labs Labs: Laboratory Tests 11/16/19 13:54 Urine Color LIGHT YELLOW Urine Clarity HAZY Urine pH 5.5 Ur Specific [place] <=1.005 Urine Protein NEGATIVE Urine Glucose (UA) NEGATIVE Urine Ketones NEGATIVE Urine Occult Blood NEGATIVE Urine Nitrite NEGATIVE Urine Bilirubin NEGATIVE Urine Urobilinogen 0.2 (NORMAL) Ur Leukocyte Esterase TRACE H Urine RBC 0-5 Urine WBC 4-5 Ur Squamous Epith Cells MOD Squamous H Urine Bacteria None Seen Ur Microscopic Review INDICATED Urine Culture Comments NOT INDICATED PD MEDICAL DECISION MAKING - ED course Complexity details: reviewed results, re-evaluated patient, considered differential, d/w patient, d/w family ED course: 15 weeks . Bedside ultrasound with an intrauterine with good movement. No free fluid. heart rate approximately 152 bpm. Images were shown to the patient. We will place her on a small amount of medication for home and have her follow-up with her doctor for further care. Appears to be musculoskeletal at this time. Abdomen is soft, nontender nondistended. No evidence of UTI, pyelonephritis, free fluid in the abdomen, peritonitis, ruptured ectopic. Patient counseled regarding signs and symptoms for which I believe and urgent re-evaluation would be necessary. Patient with good understanding of and agreement to plan and is comfortable going home at this time This document was made in part using voice recognition software. While efforts are made to proofread this document, sound alike and grammatical errors may occur. Departure - Departure Disposition: 01 Home, Self Care Clinical Impression: Back pain Qualifiers: Back pain location: low back pain Chronicity: acute Back pain laterality: left Sciatica presence: without sciatica Qualified Code(s): M54.5 - Low back pain Qualifiers: Weeks of gestation: 15 weeks Qualified Code(s): Z3A.15 - 15 weeks gestation of Condition: Good Instructions: ED Neck Back Pain General, ED Care Follow-Up: BLU ANTONIO MD [Primary Care Provider] - Within 3 Days Prescriptions: Oxycodone HCl 5 mg PO Q6H PRN #7 tablet PRN Reason: pain Comments: You can use Tylenol at home as needed for pain. Use the oxycodone for any breakthrough pain. Follow-up with your doctor for further care. This should improve over the next day or 2. Please return if you worsen. Do not drink alcohol or drive while on narcotic pain medicine. Note that many narcotic pain relievers also contain tylenol/acetaminophen. Please ensure that your total dose of acetaminophen from all sources does not exceed 3 grams (3000mg) per day. You may constipated on this medication, take a stool softener such as "Colace" twice a day while you are on it. Also recommend a [id number] laxative such as senna or MiraLAX any day that you do not have a bowel movement. If you received narcotic pain medication in the emergency department, do not drive or operate machinery for the next 24 hours.
[2019-11-16 15:46] VITALS: BP 118/76
== END 2019-11-16 15:45 | disposition home or self-care (01) ==
LOC: ED 13:33
DX: O99.89 Other specified diseases and conditions complicating pregnancy, childbirth and the puerperium (principal); M54.5 Low back pain; Z3A.15 15 weeks gestation of pregnancy
CPT/HCPCS: 81001; 99283; 99284; A9270; 81003; 87086

== ENCOUNTER 2020-02-18 19:15 | Outpatient (CLI) | payer OTHER ==
[2020-02-18 20:28] LABS: BASOPHILS % (AUTO) 0.4 %; EOSINOPHILS # (AUTO) 0.1 10^3/uL (0.0-0.7); EOSINOPHILS % (AUTO) 1.1 %; HGB - HEMOGLOBIN 12.7 g/dL (12.0-16.0); LYMPHOCYTES # (AUTO) 2.3 10^3/uL (1.5-3.5); LYMPHOCYTES % (AUTO) 23.8 %; MEAN CORPUSCULAR HEMOGLOBIN 30.2 pg (27.0-31.0); MEAN CORPUSCULAR HGB CONC 34.4 g/dL (32.0-36.0); MEAN CORPUSCULAR VOLUME 87.6 fL (81.0-99.0); MEAN PLATELET VOLUME 9.3 fL (7.9-10.8); MONOCYTES # (AUTO) 0.8 10^3/uL (0.0-1.0); MONOCYTES % (AUTO) 7.9 %; NEUTROPHILS # (AUTO) 6.3 10^3/uL (1.5-6.6); NEUTROPHILS % (AUTO) 66.4 %; PLT - PLATELET COUNT 310 10^3/uL (130-450); RED BLOOD COUNT 4.21 10^6/uL (4.20-5.40); RED CELL DISTRIBUTION WIDTH 13.6 % (12.0-15.0); WHITE BLOOD COUNT 9.5 x10^3/uL (4.8-10.8)
[2020-02-18 20:32] LABS: BILIRUBIN,URINE NEGATIVE (NEGATIVE); GLUCOSE, URINE (UA) NEGATIVE (NEGATIVE); KETONES,URINE (UA) TRACE mg/dL (NEGATIVE); LEUKOCYTE ESTERASE, URINE TRACE (NEGATIVE); NITRITE,URINE NEGATIVE (NEGATIVE); OCCULT BLOOD,URINE NEGATIVE (NEGATIVE); PH,URINE 6.5 PH (5.0-7.5); PROTEIN,URINE NEGATIVE (NEGATIVE); UROBILINOGEN,URINE 0.2 (NORMAL) E.U./dL (NORMAL)
[2020-02-18 20:34] LABS: CLARITY,URINE HAZY (CLEAR)
[2020-02-18 20:40] LABS: ALBUMIN 3.3 g/dL (3.2-5.5); ALBUMIN/GLOBULIN RATIO 0.9 (1.0-2.2); BILIRUBIN,TOTAL 0.4 mg/dL (0.2-1.0); CALCIUM 8.8 mg/dL (8.5-10.3); CREATININE 0.5 mg/dL (0.4-1.0); TOTAL PROTEIN 6.8 g/dL (6.7-8.2)
[2020-02-18 20:45] LABS: BACTERIA,URINE Many /HPF (None Seen); RBC,URINE 0-5 /HPF (0-5); SQUAMOUS EPITHELIAL CELL,UR MANY Squamous (<= Few)
--- NOTE | 2020-02-18 22:07 | PROVIDER PROGRESS NOTE ---
- HPI Chief Complaint: Diabetes (24yo G1 at 29 weeks by first trimester US who presents with symptomatic hypoglycemia. Started on insulin two weeks ago and is still adjusting doses. Ate cookies and had a glass of milk for BG of 57 at home. By the time patricio arrived here, BG was 116 and she is now feeling well. No other complaints. No n/v/f/c or dysuria, no contractions, vag bleeding or fluid leak. Normal activity. complicated also by maternal obesity.) Current : Current EDU 05/06/20 Gestation 28 Weeks and 6 Days 1 Para 0 Vital Signs Temperature 98.6 F 02/18/20 19:45 Blood Pressure 133/90 H 02/18/20 19:45 Temperature 98.6 F 02/18/20 19:45 Heart Rate Respiratory Rate Blood Pressure 133/90 H 02/18/20 19:45 O2 Saturation - Procedures OB Procedure Performed: NST Diagnosis/Indication for NST: Gestational Diabetes NST Procedure: Reactive, category 1. No contractions Service Date of procedure: 02/18/20 - Plan Plan: 24yo G1 at 29 weeks with symptomatic hypoglycemia, now feeling well. Reassuring testing. Labs normal Plan to decrease her HS dose of NPH from 8 to 6U, decrease the morning dose from 30 to 28 U. Maintain breakfast regular at 14U and dinner at 10U. Continue to check levels. Will call OB provider tomorrow for follow up. [facility]
[2020-02-18 22:34] VITALS: BP 125/81
== END 2020-02-18 22:00 | disposition home or self-care (01) ==
LOC: WFO 19:15 → FBP 19:16 → WFO 22:00
PROVIDERS: ATTEND Obstetrics & Gynecology
DX: O24.414 Gestational diabetes mellitus in pregnancy, insulin controlled (principal); Z3A.29 29 weeks gestation of pregnancy
CPT/HCPCS: 59025; 80053; 81001; 85025; 87086; 99213

== ENCOUNTER 2020-02-26 12:35 | Outpatient (CLI) | payer OTHER ==
[2020-02-26 12:51] VITALS: BP 130/80
[2020-02-26 13:34] LABS: BILIRUBIN,URINE NEGATIVE (NEGATIVE); GLUCOSE, URINE (UA) NEGATIVE (NEGATIVE); KETONES,URINE (UA) >=80 mg/dL (NEGATIVE); LEUKOCYTE ESTERASE, URINE NEGATIVE (NEGATIVE); NITRITE,URINE NEGATIVE (NEGATIVE); OCCULT BLOOD,URINE NEGATIVE (NEGATIVE); PROTEIN,URINE NEGATIVE (NEGATIVE); UROBILINOGEN,URINE 0.2 (NORMAL) E.U./dL (NORMAL)
[2020-02-26 13:40] LABS: CLARITY,URINE CLEAR (CLEAR)
[2020-02-26 13:43] LABS: RBC,URINE None Seen /HPF (0-5)
[2020-02-26 13:44] LABS: BACTERIA,URINE None Seen /HPF (None Seen); SQUAMOUS EPITHELIAL CELL,UR MOD Squamous (<= Few)
[2020-02-26] MEDS ORDERED: ONDANSETRON ODT 4 MG TABLET TL PRN (15:10)
--- NOTE | 2020-02-26 16:24 | PREOP HISTORY & PHYSICAL ---
DATE OF SERVICE: 02/26/2020 Physician: Kelechi Avelar MD IDENTIFICATION: The patient is a 24-year-old primigravida. She is currently 30 weeks EGA. CHIEF COMPLAINT: Left lower quadrant pain. HISTORY OF PRESENT ILLNESS: The patient states that she has developed left lower quadrant pain, whic h is worse when she lifts, stands, turns, or twists. She states that this is sharp in nature, short in duration. This has been going on for the last two days. She denies any blood in the urine. Note is that she has gestational diabetes and is currently taking insulin for this. She conceived on met formin secondary to prediabetes and was eventually changed over to insulin. Her blood sugar initiall y here in labor and delivery was 86. Upon palpation, she has tenderness directly over the left ingui nal area. There is no rebound. There is no flank tenderness. LABORATORY DATA: Urinalysis shows greater than 80 ketones. She has moderate squamous epitheliums. There was no evidence of any RBCs or hemoglobin in the urine. IMPRESSION 1. 30-week estimated gestational age. 2. Round ligament syndrome. 3. Gestational diabetes, insulin-dependent. PLAN: The patient was having difficulty with nausea and was given Zofran. Her repeat blood sugar was 150, following having a bag of Cheetos. At this point, the strip was also noted to be reactive. We will allow the patient to go home. She is to follow up with her provider at [facility]. She is supposed to see her MFM on 03/11/2019. She is told that this is imperative that she follow up there. TD: 02/26/2020 16:08
== END 2020-02-26 15:30 | disposition home or self-care (01) ==
LOC: WFO 12:35 → FBP 12:37 → WFO 15:30
PROVIDERS: ATTEND Obstetrics & Gynecology
DX: O21.2 Late vomiting of pregnancy (principal); O99.89 Other specified diseases and conditions complicating pregnancy, childbirth and the puerperium; R10.32 Left lower quadrant pain; O24.414 Gestational diabetes mellitus in pregnancy, insulin controlled; Z3A.30 30 weeks gestation of pregnancy
CPT/HCPCS: 81001; Q0162; 87086; 99212

== ENCOUNTER 2020-09-21 11:01 | Emergency (ER) | payer OTHER ==
[2020-09-21] MEDS ORDERED: METOCLOPRAMIDE 10 MG TABLET PO STA (12:10)
[2020-09-21 12:32] LABS: C. PNEUMONIAE- RESP PCR PANEL NOT DETECTED
--- NOTE | 2020-09-21 12:44 | ED Physician Documentation ---
History of Present Illness - Stated complaint Stated Complaint: CONGESTION/SCHREIBER - Chief complaint Chief Complaint: General - History obtained from History obtained from: Patient - Additonal information Additional information: 25-year-old woman with history of prediabetes presents with URI symptoms for the past day of congestion, dry cough, chills, myalgia, mild frontal nonradiating aching gradual onset headache associated with nonbloody nonbilious nausea vomiting x3 this morning. Her daughter is also ill with similar symptoms. 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: None : None HEENT: None Psych: None Musculoskeletal: None Derm: None - Past Surgical History Past Surgical History: No - Present Medications Home Medications: Ambulatory Orders Medication Instructions Recorded Confirmed Metformin HCl [Glucophage Xr] 500 mg PO DAILY 09/21/20 09/21/20 Metoclopramide [Reglan] 10 mg PO Q6H PRN #10 tablet 09/21/20 - Allergies Allergies/Adverse Reactions: Allergies Allergy/AdvReac Type Severity Reaction Status Date / Time No Known Drug Allergies Allergy Verified 09/21/20 11:13 - Social History Does the pt smoke?: No Smoking Status: Never smoker Does the pt drink ETOH?: Yes Does the pt have substance abuse?: No - Immunizations Immunizations are current?: Yes - POLST Patient has POLST: No PD ED PE NORMAL - Vitals Vital signs reviewed: Yes - General General: Alert and oriented X 3 - HEENT HEENT: Atraumatic - Neck Neck: Supple, no meningeal sign - Cardiac Cardiac: RRR - Respiratory Respiratory: No respiratory distress, Clear bilaterally - Abdomen Abdomen: Non tender, Non distended - Female Female : Deferred - Rectal Rectal: Deferred - Back Back: No spinal TTP - Derm Derm: Normal color - Extremities Extremities: No deformity - Neuro Neuro: Alert and oriented X 3 - Psych Psych: Normal mood, Normal affect Results - Vitals Vitals: Vital Signs - 24 hr 09/21/20 09/21/20 11:13 13:02 Temperature 98.1 C H 36.7 C Heart Rate 95 93 Respiratory 20 16 Rate Blood Pressure 136/93 H 129/92 H O2 Saturation 94 99 Oxygen O2 Source Room air - Labs Labs: Laboratory Tests 09/21/20 11:30 Nasal Adenovirus (PCR) NOT DETECTED Nasal B. parapertussis DNA (PCR) NOT DETECTED Nasal Coronavir 229E PCR NOT DETECTED Nasal Coronavir HKU1 PCR NOT DETECTED Nasal Coronavir NL63 PCR NOT DETECTED Nasal Coronavir OC43 PCR NOT DETECTED Nasal Enterovir/Rhinovir PCR NOT DETECTED Nasal Influenza B PCR NOT DETECTED Nasal Influenza A PCR NOT DETECTED Nasal Parainfluen 1 PCR NOT DETECTED Nasal Parainfluen 2 PCR NOT DETECTED Nasal Parainfluen 3 PCR NOT DETECTED Nasal Parainfluen 4 PCR NOT DETECTED Nasal RSV (PCR) NOT DETECTED Nasal B.pertussis DNA PCR NOT DETECTED Nasal C.pneumoniae (PCR) NOT DETECTED Carlos Human Metapneumo PCR NOT DETECTED Nasal M.pneumoniae (PCR) NOT DETECTED Nasal SARS-CoV-2 (PCR) NOT DETECTED PD MEDICAL DECISION MAKING - ED course ED course: 25-year-old woman presents with URI symptoms. + sick contacts. covid/respiratory panel negative. Return precautions given. will Follow-up with her primary doctor. Departure - Departure Disposition: 01 Home, Self Care Clinical Impression: Nausea and vomiting, Body aches, Congestion of throat, Chills Condition: Good Instructions: ED Viral Syndrome Prescriptions: Metoclopramide [Reglan] 10 mg PO Q6H PRN #10 tablet PRN Reason: Nausea / Vomiting Comments: You were seen in the emergency department for a likely viral syndrome. Return to the ED for any new or new symptoms or other concerns. Follow-up with your primary doctor this week. Be sure to stay well-hydrated and get lots of rest and eat salty, mild foods. Discharge Date/Time: 09/21/20 13:05
[2020-09-21 13:02] VITALS: BP 129/92
== END 2020-09-21 13:05 | disposition home or self-care (01) ==
LOC: ED 11:01
DX: R11.2 Nausea with vomiting, unspecified (principal); M79.10 Myalgia, unspecified site; R68.83 Chills (without fever); Z20.828 Contact with and (suspected) exposure to other viral communicable diseases
CPT/HCPCS: 0202U; 99283; 99284; A9270

== ENCOUNTER 2021-01-07 20:51 | Emergency (ER) | payer OTHER ==
[2021-01-07 21:05] VITALS: BP 134/69
== END 2021-01-07 21:10 | disposition left against medical advice (07) ==
LOC: ED 20:51
DX: Z53.21 Procedure and treatment not carried out due to patient leaving prior to being seen by health care provider (principal)

== ENCOUNTER 2021-03-13 03:55 | Emergency (ER) | payer OTHER ==
[2021-03-13 04:22] LABS: BILIRUBIN,URINE NEGATIVE (NEGATIVE); CLARITY,URINE CLEAR (CLEAR); GLUCOSE, URINE (UA) 250 mg/dL (NEGATIVE); KETONES,URINE (UA) TRACE mg/dL (NEGATIVE); LEUKOCYTE ESTERASE, URINE SMALL (NEGATIVE); NITRITE,URINE POSITIVE (NEGATIVE); OCCULT BLOOD,URINE LARGE (NEGATIVE); PH,URINE 5.5 PH (5.0-7.5)
[2021-03-13 04:30] LABS: HCG UR QUAL NEGATIVE
[2021-03-13 04:31] LABS: BACTERIA,URINE Few /HPF (None Seen); RBC,URINE TNTC /HPF (0-5); SQUAMOUS EPITHELIAL CELL,UR FEW Squamous (<= Few); WBC,URINE >25 /HPF (0-5)
[2021-03-13] MEDS ORDERED: PHENAZOPYRIDINE 100 MG TABLET PO STA (05:15)
[2021-03-13] MEDS ORDERED: NITROFURANTOIN MACRO 100 MG CAPSULE PO STA (05:15)
--- NOTE | 2021-03-13 05:15 | ED Physician Documentation ---
PD HPI FEMALE - Stated complaint Stated Complaint: FEMALE - Chief complaint Chief Complaint: UTI - History obtained from History obtained from: Patient - History of Present Illness Timing - onset: How many days ago (2-3) Timing - details: Abrupt onset Pain level max: 2 Associated symptoms: Back pain, Pelvic pain (suprapubic discomfort), Dysuria, Urinary frequency. No: Fever, Vaginal bleeding, Vaginal discharge, Hematuria Contributing factors: No: Recently seen: Not recently seen Review of Systems Constitutional: denies: Fever : reports: Dysuria, Frequency. denies: Now EGA Musculoskeletal: reports: Back pain PD PAST MEDICAL HISTORY - Past Medical History Past Medical History: Yes Cardiovascular: None Respiratory: None Neuro: None Endocrine/Autoimmune: None GI: None DEHAIRER: None : None HEENT: None Psych: None Musculoskeletal: None Derm: None - Past Surgical History Past Surgical History: No - Present Medications Home Medications: Ambulatory Orders Medication Instructions Recorded Confirmed Etonogestrel [Nexplanon] 03/13/21 Nitrofurantoin [Macrobid] 100 mg PO BID #10 03/13/21 - Allergies Allergies/Adverse Reactions: Allergies Allergy/AdvReac Type Severity Reaction Status Date / Time No Known Drug Allergies Allergy Verified 03/13/21 04:07 - Social History Does the pt smoke?: No Smoking Status: Never smoker Does the pt drink ETOH?: Yes Does the pt have substance abuse?: No - Immunizations Immunizations are current?: Yes - POLST Patient has POLST: No PD ED PE NORMAL - Vitals Vital signs reviewed: Yes - General General: Alert and oriented X 3, No acute distress, Well developed/nourished - Abdomen Abdomen: Soft, Non tender - Back Back: No CVA TTP Results - Vitals Vitals: Vital Signs - 24 hr 03/13/21 03/13/21 03/13/21 04:00 04:11 05:32 Temperature 36.5 C 36.5 C 36.5 C Heart Rate 86 86 81 Respiratory 16 16 16 Rate Blood Pressure 129/104 H 129/98 H 125/88 H O2 Saturation 100 100 99 Oxygen O2 Source Room air - Labs Labs: Laboratory Tests 03/13/21 04:13 Urine Color ORANGE Urine Clarity CLEAR Urine pH 5.5 Ur Specific [place] 1.025 Urine Protein Urine Glucose (UA) 250 H Urine Ketones TRACE Urine Occult Blood LARGE H Urine Nitrite POSITIVE H Urine Bilirubin NEGATIVE Urine Urobilinogen Ur Leukocyte Esterase SMALL H Urine RBC TNTC H Urine WBC >25 H Ur Squamous Epith Cells FEW Squamous Urine Bacteria Few Ur Microscopic Review INDICATED Urine Culture Comments INDICATED Urine HCG, Qual NEGATIVE PD MEDICAL DECISION MAKING - ED course Complexity details: considered differential, d/w patient ED course: symptoms c/w UTI with urinalysis results also suggestive of UTI. Given macrobid, pyridium , prescriptions for same. Departure - Departure Disposition: 01 Home, Self Care Clinical Impression: Urinary tract infection Condition: Good Instructions: ED UTI Cystitis Female Follow-Up: BLU ANTONIO MD [Primary Care Provider] - (3-4 days if symptoms have not resolved) Prescriptions: Nitrofurantoin [Macrobid] 100 mg PO BID #10 Discharge Date/Time: 03/13/21 05:32
[2021-03-13 05:33] VITALS: BP 125/88
== END 2021-03-13 05:32 | disposition home or self-care (01) ==
LOC: ED 03:55
DX: N39.0 Urinary tract infection, site not specified (principal)
CPT/HCPCS: 81001; 81025; 87086; 99283; A9270; 81003

== ENCOUNTER 2021-06-26 22:14 | Emergency (ER) | payer OTHER ==
[2021-06-26 22:26] VITALS: BP 145/101
--- NOTE | 2021-06-26 22:50 | ED Physician Documentation ---
PD HPI SKIN - Stated complaint Stated Complaint: RT THIGH LUMP/RED & FEVERISH - Chief complaint Chief Complaint: Wound - History obtained from History obtained from: Patient - Additional information Additional information: 26-year-old woman presents with right thigh pimple that has become erythematous and warm with mild associated pain. Denies fevers. Patient is on 5 amoxicillin orally for dental issue. Review of Systems Constitutional: denies: Fever, Chills Skin: reports: Other (erythema) PD PAST MEDICAL HISTORY - Past Medical History Cardiovascular: None Respiratory: None Neuro: None Endocrine/Autoimmune: None GI: None ASSESSOR: None : None HEENT: None Psych: None Musculoskeletal: None Derm: None - Past Surgical History Past Surgical History: No - Present Medications Home Medications: Ambulatory Orders Medication Instructions Recorded Confirmed Etonogestrel [Nexplanon] 03/13/21 Amoxicillin 500 mg PO TID 06/26/21 06/26/21 Ibuprofen [Motrin] 800 mg PO Q8HR PRN 06/26/21 06/26/21 Mupirocin 1 appful TP TID 10 Days #1 bottle 06/26/21 Oxycodone HCl/Acetaminophen 1 tab PO Q4HR PRN 06/26/21 06/26/21 [Percocet 5-325 mg Tablet] - Allergies Allergies/Adverse Reactions: Allergies Allergy/AdvReac Type Severity Reaction Status Date / Time No Known Drug Allergies Allergy Verified 06/26/21 22:25 - Social History Does the pt smoke?: No Smoking Status: Never smoker Does the pt drink ETOH?: Yes Does the pt have substance abuse?: No - Immunizations Immunizations are current?: Yes - POLST Patient has POLST: No PD ED PE NORMAL - Vitals Vital signs reviewed: Yes - General General: Alert and oriented X 3, No acute distress, Well developed/nourished - HEENT HEENT: Atraumatic, PERRL, EOMI - Derm Derm: Normal color, Warm and dry, Other (1cm area of erythema to R anterior thigh with central purulence without fluctuance. mild swelling) Results - Vitals Vitals: Vital Signs - 24 hr 06/26/21 22:22 Temperature 36.0 C L Heart Rate 90 Respiratory 16 Rate Blood Pressure 145/101 H O2 Saturation 98 Oxygen O2 Source Room air PD MEDICAL DECISION MAKING - ED course ED course: 26-year-old woman presents with right anterior thigh pimple with overlying cellulitis. Antibiotic ointment prescribed to cover MRSA. Return precautions given. Patient will follow up for wound check with her PMD. Departure - Departure Disposition: 01 Home, Self Care Clinical Impression: Cellulitis Condition: Good Instructions: Cellulitis Dc Prescriptions: Mupirocin 1 appful TP TID 10 Days #1 bottle Comments: You are seen in the emergency department for a small skin infection. You should apply antibiotic ointment 3 times daily as prescribed for 10 days and return to the emergency department if you notice that it is spreading, not improving after 48 hours, or if you have any other new or worsening symptoms or other concerns.
== END 2021-06-26 23:15 | disposition home or self-care (01) ==
LOC: ED 22:14
DX: L03.115 Cellulitis of right lower limb (principal)
CPT/HCPCS: 99282; 99283

== ENCOUNTER 2021-08-04 16:10 | Emergency (ER) | payer OTHER ==
[2021-08-04] MEDS ORDERED: SODIUM CHLORIDE 0.9% 1,000 ML IV STA (16:31)
--- NOTE | 2021-08-04 16:32 | ED Physician Documentation ---
PD HPI ABD PAIN - Stated complaint Stated Complaint: VOM/LAMBERTO/NO APPETITE - Chief complaint Chief Complaint: Abd Pain - History obtained from History obtained from: Patient - Additional information Additional information: 26-year-old woman with history of gestational diabetes but no other diabetes started having polyuria and polydipsia severely 2 weeks ago. She saw her doctor and her hemoglobin A1c was in the 12's and was prescribed Metformin and Lantus 10 units a day. She has not started them yet but just generally feels terrible. Review of Systems Ten Systems: 10 systems reviewed and negative Constitutional: reports: Fatigue Cardiac: denies: Chest pain / pressure, Palpitations Respiratory: denies: Dyspnea, Cough GI: denies: Abdominal Pain, Nausea, Vomiting PD PAST MEDICAL HISTORY - Past Medical History Cardiovascular: None Respiratory: None Neuro: None Endocrine/Autoimmune: None GI: None DANCE MASTER: None : None HEENT: None Psych: None Musculoskeletal: None Derm: None - Past Surgical History Past Surgical History: No - Present Medications Home Medications: Ambulatory Orders Medication Instructions Recorded Confirmed Etonogestrel [Nexplanon] 03/13/21 Amoxicillin 500 mg PO TID 06/26/21 06/26/21 Ibuprofen [Motrin] 800 mg PO Q8HR PRN 06/26/21 06/26/21 Mupirocin 1 appful TP TID 10 Days #1 bottle 06/26/21 Oxycodone HCl/Acetaminophen 1 tab PO Q4HR PRN 06/26/21 06/26/21 [Percocet 5-325 mg Tablet] - Allergies Allergies/Adverse Reactions: Allergies Allergy/AdvReac Type Severity Reaction Status Date / Time No Known Drug Allergies Allergy Verified 08/04/21 16:14 - Social History Does the pt smoke?: No Smoking Status: Never smoker Does the pt drink ETOH?: Yes Does the pt have substance abuse?: No - Family History Family history: reports: DM (dad) - Immunizations Immunizations are current?: Yes - POLST Patient has POLST: No PD ED PE NORMAL - Vitals Vital signs reviewed: Yes - General General: Alert and oriented X 3, No acute distress - Cardiac Cardiac: RRR, No murmur - Respiratory Respiratory: No respiratory distress, Clear bilaterally - Abdomen Abdomen: Non tender - Derm Derm: Normal color, Warm and dry - Neuro Neuro: Alert and oriented X 3, Normal speech Results - Vitals Vitals: Vital Signs - 24 hr 08/04/21 08/04/21 08/04/21 16:14 16:43 17:30 Temperature 36.2 C L Heart Rate 92 84 87 Respiratory 18 16 16 Rate Blood Pressure 139/88 H 113/82 H 114/71 O2 Saturation 100 98 100 08/04/21 08/04/21 17:55 17:58 Temperature 37 C Heart Rate 97 92 Respiratory 17 16 Rate Blood Pressure 124/82 H 124/82 H O2 Saturation 100 100 Oxygen O2 Source Room air - Labs Labs: Laboratory Tests 08/04/21 08/04/21 08/04/21 16:20 16:25 16:39 WBC 7.7 RBC 5.19 Hgb 14.8 Hct 42.8 MCV 82.5 MCH 28.5 MCHC 34.6 RDW 13.2 Plt Count 302 MPV 10.1 Neut # (Auto) 4.2 Lymph # (Auto) 2.7 [place] # (Auto) 0.6 Eos # (Auto) 0.2 Baso # (Auto) 0.1 Absolute Nucleated RBC 0.00 Nucleated RBC % 0.0 VBG pH VBG pCO2 VBG pO2 VBG HCO3 VBG Total CO2 VBG O2 Saturation VBG Base Excess Sodium Potassium Chloride Carbon Dioxide Anion Gap BUN Creatinine Estimated GFR (MDRD) Glucose POC Whole Bld Glucose 421 H Calcium Magnesium Total Bilirubin AST ALT Alkaline Phosphatase Total Protein Albumin Globulin Albumin/Globulin Ratio Urine Color YELLOW Urine Clarity BLOODY Urine pH 5.0 Ur Specific [place] 1.020 Urine Protein NEGATIVE Urine Glucose (UA) >=1000 H Urine Ketones 15 H Urine Occult Blood LARGE H Urine Nitrite NEGATIVE Urine Bilirubin NEGATIVE Urine Urobilinogen 0.2 (NORMAL) Ur Leukocyte Esterase NEGATIVE Urine RBC 6-10 H Urine WBC 4-5 Ur Squamous Epith Cells MOD Squamous H Urine Bacteria Many H Ur Microscopic Review INDICATED Urine Culture Comments NOT INDICATED Urine HCG, Qual NEGATIVE Serum Ketones 08/04/21 08/04/21 08/04/21 16:39 16:39 17:40 WBC RBC Hgb Hct MCV MCH MCHC RDW Plt Count MPV Neut # (Auto) Lymph # (Auto) [place] # (Auto) Eos # (Auto) Baso # (Auto) Absolute Nucleated RBC Nucleated RBC % VBG pH 7.377 VBG pCO2 43.4 VBG pO2 32.0 VBG HCO3 24.9 VBG Total CO2 26.3 VBG O2 Saturation 66.4 VBG Base Excess -0.4 Sodium 132 L Potassium 4.0 Chloride 97 L Carbon Dioxide 23 Anion Gap 12.0 BUN 11 Creatinine 0.8 Estimated GFR (MDRD) 86 L Glucose 395 H POC Whole Bld Glucose 278 H Calcium 9.5 Magnesium 1.9 Total Bilirubin 0.7 AST 15 ALT 17 Alkaline Phosphatase 103 Total Protein 7.6 Albumin 4.2 Globulin 3.4 Albumin/Globulin Ratio 1.2 Urine Color Urine Clarity Urine pH Ur Specific [place] Urine Protein Urine Glucose (UA) Urine Ketones Urine Occult Blood Urine Nitrite Urine Bilirubin Urine Urobilinogen Ur Leukocyte Esterase Urine RBC Urine WBC Ur Squamous Epith Cells Urine Bacteria Ur Microscopic Review Urine Culture Comments Urine HCG, Qual Serum Ketones NEGATIVE PD MEDICAL DECISION MAKING - ED course ED course: 26-year-old woman with new onset diabetes presents with elevated blood sugars. There is no evidence of DKA. Her blood sugar was much better after the administration of IV fluids, Metformin, and IV insulin. She was counseled on the use of her Lantus pen which she already has but has not used yet. Departure - Departure Disposition: 01 Home, Self Care Clinical Impression: New onset type 2 diabetes mellitus Condition: Good Record reviewed to determine appropriate education?: Yes Instructions: Diabetes Type 2, ED Diet Diabetic Comments: Most likely that your diabetes is type II, that said follow-up with your doctor for confirmation based on the labs they are doing. There was no evidence of diabetic ketoacidosis on your labs which we are thankful for. I would take your Lantus in the morning. And start your Metformin tomorrow morning 2. Follow-up with your doctor as planned. In the emergency department tonight you received 500 mg of metformin orally and 8 units of IV insulin as well as 1 L of saline. Other than the high blood sugar, your labs were relatively unremarkable. Return as needed for new or worsening symptoms. Discharge Date/Time: 08/04/21 18:00
[2021-08-04 16:37] LABS: BILIRUBIN,URINE NEGATIVE (NEGATIVE); GLUCOSE, URINE (UA) >=1000 mg/dL (NEGATIVE); KETONES,URINE (UA) 15 mg/dL (NEGATIVE); LEUKOCYTE ESTERASE, URINE NEGATIVE (NEGATIVE); NITRITE,URINE NEGATIVE (NEGATIVE); OCCULT BLOOD,URINE LARGE (NEGATIVE); PROTEIN,URINE NEGATIVE (NEGATIVE); UROBILINOGEN,URINE 0.2 (NORMAL) E.U./dL (NORMAL)
[2021-08-04 16:39] LABS: CLARITY,URINE BLOODY (CLEAR); HCG UR QUAL NEGATIVE
[2021-08-04 16:46] LABS: VBG BASE EXCESS -0.4 mmol/L (-2 - +2); VBG HCO3 24.9 mmol/L (23-28); VBG OXYGEN SATURATION 66.4 % (60-80); VBG PCO2 43.4 mmHg (41-51); VBG PH 7.377 (7.31-7.41); VBG TOTAL CO2 26.3 mmol/L (24-29)
[2021-08-04 16:55] LABS: ALBUMIN 4.2 g/dL (3.2-5.5); ALBUMIN/GLOBULIN RATIO 1.2 (1.0-2.2); ALKALINE PHOSPHATASE 103 IU/L (42-121); ALT ALANINE AMINOTRANSFERASE 17 IU/L (10-60); AST ASPARTATE AMINOTRANSFERASE 15 IU/L (10-42); BILIRUBIN,TOTAL 0.7 mg/dL (0.2-1.0); BUN - BLOOD UREA NITROGEN 11 mg/dL (6-20); CALCIUM 9.5 mg/dL (8.5-10.3); CARBON DIOXIDE - CO2 23 mmol/L (21-32); CHLORIDE 97 mmol/L (101-111); CREATININE 0.8 mg/dL (0.4-1.0); GFR - MDRD 86 (>89); GLUCOSE 395 mg/dL (70-100); MAGNESIUM 1.9 mg/dL (1.7-2.8); SODIUM 132 mmol/L (135-145); TOTAL PROTEIN 7.6 g/dL (6.7-8.2)
[2021-08-04 16:57] LABS: BASOPHILS # (AUTO) 0.1 10^3/uL (0.0-0.1); BASOPHILS % (AUTO) 0.8 %; EOSINOPHILS # (AUTO) 0.2 10^3/uL (0.0-0.7); EOSINOPHILS % (AUTO) 2.2 %; HCT - HEMATOCRIT 42.8 % (37.0-47.0); HGB - HEMOGLOBIN 14.8 g/dL (12.0-16.0); LYMPHOCYTES # (AUTO) 2.7 10^3/uL (1.5-3.5); LYMPHOCYTES % (AUTO) 34.8 %; MEAN CORPUSCULAR HEMOGLOBIN 28.5 pg (27.0-31.0); MEAN CORPUSCULAR HGB CONC 34.6 g/dL (32.0-36.0); MEAN CORPUSCULAR VOLUME 82.5 fL (81.0-99.0); MEAN PLATELET VOLUME 10.1 fL (7.9-10.8); MONOCYTES # (AUTO) 0.6 10^3/uL (0.0-1.0); MONOCYTES % (AUTO) 7.6 %; NEUTROPHILS # (AUTO) 4.2 10^3/uL (1.5-6.6); NEUTROPHILS % (AUTO) 54.5 %; PLT - PLATELET COUNT 302 10^3/uL (130-450); RED BLOOD COUNT 5.19 10^6/uL (4.20-5.40); RED CELL DISTRIBUTION WIDTH 13.2 % (12.0-15.0); WHITE BLOOD COUNT 7.7 x10^3/uL (4.8-10.8)
[2021-08-04 16:58] LABS: BACTERIA,URINE Many /HPF (None Seen); SQUAMOUS EPITHELIAL CELL,UR MOD Squamous (<= Few)
[2021-08-04] MEDS ORDERED: metFORMIN 500 MG TABLET PO STA (17:01)
[2021-08-04] MEDS ORDERED: INSULIN REGULAR HUMAN 100 UNIT/1 ML 10 ML MDV IVP STA (17:01)
[2021-08-04 17:20] LABS: KETONES, SERUM (ACETEST) NEGATIVE (NEGATIVE)
[2021-08-04 17:56] VITALS: BP 124/82
== END 2021-08-04 18:00 | disposition home or self-care (01) ==
LOC: ED 16:10
DX: E11.65 Type 2 diabetes mellitus with hyperglycemia (principal); Z79.4 Long term (current) use of insulin; Z79.84 Long term (current) use of oral hypoglycemic drugs; Z83.3 Family history of diabetes mellitus
CPT/HCPCS: 36415; 80053; 81001; 81025; 82009; 82803; 83735; 85025; 96360; 99283; A9270; J1815; 81003; 87086

== ENCOUNTER 2021-08-10 18:22 | Emergency (ER) | payer OTHER ==
[2021-08-10] MEDS ORDERED: HYDROmorphone 1 MG/ML CARPUJECT IVP STA (19:12)
[2021-08-10] MEDS ORDERED: SODIUM CHLORIDE 0.9% 1,000 ML IV STA (19:12)
[2021-08-10] MEDS ORDERED: ONDANSETRON 4 MG/2 ML VIAL IVP STA (19:12)
[2021-08-10] MEDS ORDERED: IOPAMIDOL-300 100 ML VIAL ONE (19:25)
--- NOTE | 2021-08-10 19:31 | ED Physician Documentation ---
History of Present Illness - Stated complaint Stated Complaint: N/V BACK PX - Chief complaint Chief Complaint: Abd Pain - Additonal information Additional information: 26-year-old female presents emergency department for evaluation of bilateral flank pain nausea and vomiting. She was diagnosed as having type 2 diabetes earlier this week and has subsequently been started on Metformin as well as Lantus. She is checking her sugars at home and they have typically been under 200. She was seen in this emergency department on 04 August and subsequently saw her primary care provider on the . At that time she was diagnosed with pyelonephritis and started on Bactrim. She denies that she is having any urinary symptoms and despite compliance with Bactrim has begun to develop persistent back and flank pain as well as have uncontrolled vomiting. Past surgical history most significant for only Meds Lantus 12 units daily, Metformin 500 mg twice daily Review of Systems Constitutional: denies: Fever, Chills Nose: reports: Reviewed and negative Throat: reports: Reviewed and negative Cardiac: reports: Reviewed and negative Respiratory: reports: Reviewed and negative GI: reports: Abdominal Pain, Nausea, Vomiting. 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 : None HEENT: None Psych: None Musculoskeletal: None Derm: None - Past Surgical History Past Surgical History: No - Present Medications Home Medications: Ambulatory Orders Medication Instructions Recorded Confirmed Etonogestrel [Nexplanon] 03/13/21 Amoxicillin 500 mg PO TID 06/26/21 06/26/21 Ibuprofen [Motrin] 800 mg PO Q8HR PRN 06/26/21 06/26/21 Mupirocin 1 appful TP TID 10 Days #1 bottle 06/26/21 Oxycodone HCl/Acetaminophen 1 tab PO Q4HR PRN 06/26/21 06/26/21 [Percocet 5-325 mg Tablet] Prochlorperazine [Compazine] 5 mg PO Q6H PRN #20 tablet 08/10/21 - Allergies Allergies/Adverse Reactions: Allergies Allergy/AdvReac Type Severity Reaction Status Date / Time No Known Drug Allergies Allergy Verified 08/10/21 18:26 - Social History Does the pt smoke?: No Smoking Status: Never smoker Does the pt drink ETOH?: Yes Does the pt have substance abuse?: No - Immunizations Immunizations are current?: Yes - POLST Patient has POLST: No PD ED PE NORMAL - General General: Alert and oriented X 3, No acute distress - HEENT HEENT: PERRL - Neck Neck: Supple, no meningeal sign - Cardiac Cardiac: RRR, No murmur, No gallop - Respiratory Respiratory: Clear bilaterally - Abdomen Abdomen: Normal bowel sounds, Soft. No: Non tender (Bilateral CVA tenderness. Minimal lower abdominal pain tenderness without guarding or rebound. Negative [place]) - Back Back: No spinal TTP. No: No CVA TTP - Derm Derm: Normal color, Warm and dry, No rash - Extremities Extremities: No deformity - Neuro Neuro: Alert and oriented X 3 Eye Opening: Spontaneous Motor: Obeys Commands Verbal: Oriented GCS Score: 15 Results - Vitals Vitals: Vital Signs - 24 hr 08/10/21 08/10/21 08/10/21 18:26 20:01 20:28 Temperature 36.5 C Heart Rate 90 79 Respiratory 16 19 16 Rate Blood Pressure 140/90 H 126/88 H O2 Saturation 96 99 08/10/21 20:31 Temperature Heart Rate 83 Respiratory 15 Rate Blood Pressure 130/92 H O2 Saturation 99 Oxygen O2 Source Room air - Labs Labs: Laboratory Tests 08/10/21 08/10/21 08/10/21 18:37 18:37 19:20 WBC 7.9 RBC 5.20 Hgb 14.8 Hct 43.4 MCV 83.5 MCH 28.5 MCHC 34.1 RDW 13.5 Plt Count 331 MPV 9.5 Neut # (Auto) 4.5 Lymph # (Auto) 2.5 [place] # (Auto) 0.6 Eos # (Auto) 0.1 Baso # (Auto) 0.1 Absolute Nucleated RBC 0.00 Nucleated RBC % 0.0 Sodium Potassium Chloride Carbon Dioxide Anion Gap BUN Creatinine Estimated GFR (MDRD) Glucose Calcium Total Bilirubin AST ALT Alkaline Phosphatase Total Protein Albumin Globulin Albumin/Globulin Ratio Lipase Urine Color YELLOW Urine Clarity HAZY Urine pH 6.0 Ur Specific [place] >=1.030 H Urine Protein NEGATIVE Urine Glucose (UA) 500 H Urine Ketones 40 H Urine Occult Blood SMALL H Urine Nitrite NEGATIVE Urine Bilirubin NEGATIVE Urine Urobilinogen 0.2 (NORMAL) Ur Leukocyte Esterase NEGATIVE Urine RBC 6-10 H Urine WBC 0-3 Ur Squamous Epith Cells FEW Squamous Urine Bacteria Few Ur Microscopic Review INDICATED Urine Culture Comments NOT INDICATED Urine HCG, Qual NEGATIVE 08/10/21 19:20 WBC RBC Hgb Hct MCV MCH MCHC RDW Plt Count MPV Neut # (Auto) Lymph # (Auto) [place] # (Auto) Eos # (Auto) Baso # (Auto) Absolute Nucleated RBC Nucleated RBC % Sodium 134 L Potassium 3.9 Chloride 100 L Carbon Dioxide 24 Anion Gap 10.0 BUN 14 Creatinine 0.7 Estimated GFR (MDRD) 100 Glucose 209 H Calcium 9.0 Total Bilirubin 0.8 AST 15 ALT 18 Alkaline Phosphatase 93 Total Protein 7.5 Albumin 4.1 Globulin 3.4 Albumin/Globulin Ratio 1.2 Lipase 24 Urine Color Urine Clarity Urine pH Ur Specific [place] Urine Protein Urine Glucose (UA) Urine Ketones Urine Occult Blood Urine Nitrite Urine Bilirubin Urine Urobilinogen Ur Leukocyte Esterase Urine RBC Urine WBC Ur Squamous Epith Cells Urine Bacteria Ur Microscopic Review Urine Culture Comments Urine HCG, Qual - Rads (name of study) CT abd Radiology: Final report received (No acute abdominal or pelvic abnormality. 3.8 cm left ovarian cyst.) PD MEDICAL DECISION MAKING - ED course Complexity details: reviewed old records, reviewed results, re-evaluated patient, d/w patient ED course: 26-year-old female who is newly diagnosed with diabetes last week presents the emergency department with bilateral flank pain and uncontrolled nausea. She was seen by my colleague on the and in follow-up with her primary doctor on the was started on Bactrim for suspected pyelonephritis. She states that over the last week she has been having increasing flank pain as well as vomiting. She sometimes associates it with the Bactrim or the Metformin use. Here in the emergency department screening labs were without acute worrisome abnormality. Specifically no leukocytosis. Her blood sugar was approximating 200. She had preserved renal function. However she was quite tender in her CVA area and given the reported history of pyelonephritis CT scan was completed. Reassuringly however the CT scan did not show any worrisome acute abdominal findings. Her urine is also not consistent with infection at this time Patient was repleted with IV fluids here in the emergency department as well as Zofran. I suspect that the cause of the nausea and vomiting may be secondary to the Bactrim administration. Since there is no further findings of infection in her urine or pyelonephritis she is advised to stop taking it. I have advised her to take the Metformin on a full stomach. Patient does have Zofran at home but feels it makes her sleepy therefore I will prescribe some Compazine. She is to continue close follow-up with her primary care doctor if symptoms do not improve she will return immediately to the ER for a second evaluation. Departure - Departure Disposition: Home, Self Care Clinical Impression: DM hyperosmolarity type II, uncontrolled Nausea and vomiting Qualifiers: Vomiting type: unspecified Qualified Code(s): R11.2 - Nausea with vomiting, unspecified Condition: Stable Record reviewed to determine appropriate education?: Yes Instructions: ED Nausea Vomiting Prescriptions: Prochlorperazine [Compazine] 5 mg PO Q6H PRN #20 tablet PRN Reason: vomiting Comments: You are seen in the emergency department today for nausea and vomiting. You also reported pain in your back and that you had recently been diagnosed with pyelonephritis when you followed up with your primary care provider. Your urine today shows that the infection in the urine has resolved. You do not need to take your final dose of Bactrim. The screening labs were otherwise without worrisome findings. Your blood glucose was just over 200. The CT of the abdomen did not show findings of pyelonephritis or any other worrisome abdominal process. You do have a 3.8 cm left ovarian cyst. Follow this up with any OB. It is important that you take the Metformin with a full stomach. I have prescribed some Compazine to help with the nausea at home. If despite taking the Compazine or the Zofran at home you continue to have persistent vomiting you can return to the emergency department. However you should follow up with your primary care doctor. Sometimes Metformin does cause vomiting. If at any point you feel that your symptoms are worsening, you have uncontrolled fevers vomiting severe belly pain then please return immediately to the ER for a second evaluation. [place]
[2021-08-10 19:38] LABS: BASOPHILS # (AUTO) 0.1 10^3/uL (0.0-0.1); BASOPHILS % (AUTO) 0.6 %; EOSINOPHILS # (AUTO) 0.1 10^3/uL (0.0-0.7); EOSINOPHILS % (AUTO) 1.5 %; HCT - HEMATOCRIT 43.4 % (37.0-47.0); HGB - HEMOGLOBIN 14.8 g/dL (12.0-16.0); LYMPHOCYTES # (AUTO) 2.5 10^3/uL (1.5-3.5); MEAN CORPUSCULAR HEMOGLOBIN 28.5 pg (27.0-31.0); MEAN CORPUSCULAR HGB CONC 34.1 g/dL (32.0-36.0); MEAN CORPUSCULAR VOLUME 83.5 fL (81.0-99.0); MEAN PLATELET VOLUME 9.5 fL (7.9-10.8); MONOCYTES # (AUTO) 0.6 10^3/uL (0.0-1.0); MONOCYTES % (AUTO) 7.9 %; NEUTROPHILS # (AUTO) 4.5 10^3/uL (1.5-6.6); NEUTROPHILS % (AUTO) 57.6 %; PLT - PLATELET COUNT 331 10^3/uL (130-450); RED CELL DISTRIBUTION WIDTH 13.5 % (12.0-15.0); WHITE BLOOD COUNT 7.9 x10^3/uL (4.8-10.8)
[2021-08-10 19:47] LABS: ALBUMIN 4.1 g/dL (3.2-5.5); ALBUMIN/GLOBULIN RATIO 1.2 (1.0-2.2); BILIRUBIN,TOTAL 0.8 mg/dL (0.2-1.0); CREATININE 0.7 mg/dL (0.4-1.0); POTASSIUM 3.9 mmol/L (3.5-5.0); TOTAL PROTEIN 7.5 g/dL (6.7-8.2)
[2021-08-10 19:51] LABS: BILIRUBIN,URINE NEGATIVE (NEGATIVE); GLUCOSE, URINE (UA) 500 mg/dL (NEGATIVE); KETONES,URINE (UA) 40 mg/dL (NEGATIVE); LEUKOCYTE ESTERASE, URINE NEGATIVE (NEGATIVE); NITRITE,URINE NEGATIVE (NEGATIVE); OCCULT BLOOD,URINE SMALL (NEGATIVE); PROTEIN,URINE NEGATIVE (NEGATIVE); UROBILINOGEN,URINE 0.2 (NORMAL) E.U./dL (NORMAL)
[2021-08-10 19:53] LABS: HCG UR QUAL NEGATIVE
[2021-08-10 20:03] LABS: CLARITY,URINE HAZY (CLEAR)
[2021-08-10 20:16] LABS: WBC,URINE 0-3 /HPF (0-5)
[2021-08-10 20:17] LABS: BACTERIA,URINE Few /HPF (None Seen); SQUAMOUS EPITHELIAL CELL,UR FEW Squamous (<= Few)
[2021-08-10 20:32] VITALS: BP 130/92
[2021-08-10] MEDS ORDERED: IOPAMIDOL-300 100 ML VIAL IVP ONE (20:41)
--- NOTE | 2021-08-10 20:55 | CT Report ---
PROCEDURE: Abdomen/Pelvis W INDICATIONS: Bilateral CVA tenderness. Questionable Pyelo CONTRAST: IV CONTRAST: Isovue 300 ml: 100 PO CONTRAST: *NO PO CONTRAST TECHNIQUE: After the administration of contrast, 5 mm thick sections acquired from the diaphragms to the sym physis. 5 mm thick coronal and sagittal reformats were acquired. For radiation dose reduction, the following was used: automated exposure control, adjustment of mA and/or kV according to patient size . COMPARISON: None. FINDINGS: Image quality: Excellent. ABDOMEN: Lung bases: Lung bases are clear. Heart size is normal. Solid organs: Liver and spleen are normal in size and enhancement. Gallbladder is normal Biliary s ystem is non dilated. Pancreas enhances normally. No adrenal nodules. Kidneys demonstrate normal s ize and enhancement, without hydronephrosis. Peritoneum and bowel: Bowel loops demonstrate normal wall thickness and caliber. No free fluid or a ir. Nodes and vessels: No retroperitoneal or mesenteric adenopathy by size criteria. Aorta and inferior vena cava are normal in size. Miscellaneous: No ventral hernias. PELVIS: Genitourinary: Bladder wall thickness is normal. Left ovarian cyst measuring 3.8 cm. Miscellaneous: No inguinal hernias or adenopathy. Bones: No suspicious bony lesions. No vertebral body compression fractures. IMPRESSION: 1. No acute abdominal or pelvic abnormality. 2. 3.8 [place] cm left ovarian cyst. Reviewed by: Rakesh Wright on 08/10/2021 8:54 PM PST Approved by: Rakesh Wright on 08/10/2021 8:54 PM PST Station ID: [id number]
== END 2021-08-10 21:40 | disposition home or self-care (01) ==
LOC: ED 18:22
DX: E11.00 Type 2 diabetes mellitus with hyperosmolarity without nonketotic hyperglycemic-hyperosmolar coma (NKHHC) (principal); R11.2 Nausea with vomiting, unspecified; M54.9 Dorsalgia, unspecified; E11.9 Type 2 diabetes mellitus without complications; Z79.4 Long term (current) use of insulin; Z79.84 Long term (current) use of oral hypoglycemic drugs
CPT/HCPCS: 36415; 74177; 80053; 81001; 81025; 83690; 85025; 96374; 99283; 99284; J1170; Q9967; 81003; 87086

== ENCOUNTER 2021-09-23 00:46 | Emergency (ER) | payer OTHER ==
[2021-09-23 00:56] VITALS: BP 136/89
[2021-09-23 01:22] LABS: BASOPHILS # (AUTO) 0.1 10^3/uL (0.0-0.1); BASOPHILS % (AUTO) 0.5 %; EOSINOPHILS # (AUTO) 0.1 10^3/uL (0.0-0.7); EOSINOPHILS % (AUTO) 0.7 %; HCT - HEMATOCRIT 44.3 % (37.0-47.0); HGB - HEMOGLOBIN 15.1 g/dL (12.0-16.0); LYMPHOCYTES # (AUTO) 3.4 10^3/uL (1.5-3.5); MEAN CORPUSCULAR HEMOGLOBIN 28.3 pg (27.0-31.0); MEAN CORPUSCULAR HGB CONC 34.1 g/dL (32.0-36.0); MEAN PLATELET VOLUME 9.2 fL (7.9-10.8); MONOCYTES # (AUTO) 1.1 10^3/uL (0.0-1.0); MONOCYTES % (AUTO) 8.6 %; NEUTROPHILS # (AUTO) 8.3 10^3/uL (1.5-6.6); NEUTROPHILS % (AUTO) 63.9 %; PLT - PLATELET COUNT 377 10^3/uL (130-450); RED BLOOD COUNT 5.34 10^6/uL (4.20-5.40); RED CELL DISTRIBUTION WIDTH 12.5 % (12.0-15.0)
[2021-09-23 01:32] LABS: ALBUMIN 4.5 g/dL (3.2-5.5); ALBUMIN/GLOBULIN RATIO 1.3 (1.0-2.2); BILIRUBIN,TOTAL 0.6 mg/dL (0.2-1.0); CALCIUM 9.1 mg/dL (8.5-10.3); CREATININE 0.6 mg/dL (0.4-1.0); POTASSIUM 3.8 mmol/L (3.5-5.0)
[2021-09-23 01:39] LABS: BILIRUBIN,URINE NEGATIVE (NEGATIVE); GLUCOSE, URINE (UA) NEGATIVE (NEGATIVE); KETONES,URINE (UA) TRACE mg/dL (NEGATIVE); LEUKOCYTE ESTERASE, URINE NEGATIVE (NEGATIVE); NITRITE,URINE NEGATIVE (NEGATIVE); OCCULT BLOOD,URINE NEGATIVE (NEGATIVE); PROTEIN,URINE NEGATIVE (NEGATIVE); UROBILINOGEN,URINE 0.2 (NORMAL) E.U./dL (NORMAL)
[2021-09-23 01:44] LABS: CLARITY,URINE CLEAR (CLEAR)
[2021-09-23 01:45] LABS: HCG UR QUAL NEGATIVE
== END 2021-09-23 03:28 | disposition left against medical advice (07) ==
LOC: ED 00:46
DX: Z53.21 Procedure and treatment not carried out due to patient leaving prior to being seen by health care provider (principal)
CPT/HCPCS: 36415; 80053; 81001; 81003; 81025; 83690; 85025; 87086